=== PATIENT | male | born 1940 | race Caucasian/White ===

== ENCOUNTER 2024-05-14 17:47 | Inpatient (IN) | payer MEDICARE, BC ==
[2024-05-14 18:16] LABS: Anisocytosis Slight; Basophils % (A) 0 %; Eosinophils % (A) 0 %; Hypochromasia Slight; Lymphocytes # (A) 1.1 k/uL (1.0-4.8); Lymphocytes % (A) 18 %; MCH 31.7 pg (25.0-35.0); MCHC 32.9 g/dL (31.0-37.0); MCV 96.4 fL (80.0-100.0); Macrocytosis Slight; Mean Platelet Volume 9.2; Monocytes # (A) 0.4 k/uL (0-1.0); Monocytes % (A) 6 %; Neutrophils # (A) 4.7 k/uL (1.3-7.7); Neutrophils % (A) 74 %; Platelet Count 137 k/uL (150-450); RBC 2.06 m/uL (4.30-5.90); RDW 16.9 % (11.5-15.5); WBC 6.3 k/uL (3.8-10.6)
[2024-05-14 18:37] LABS: HCT 19.8 % (39.0-53.0); HGB 6.5 gm/dL (13.0-17.5)
--- NOTE | 2024-05-14 20:08 | ED ---
General Adult HPI - General Chief complaint: GI Bleed Stated complaint: Low Hemoglobin Time Seen by Provider: 05/14/24 17:47 Source: patient, EMS, RN notes reviewed, old records reviewed Mode of arrival: EMS - History of Present Illness Initial comments: This is an 83-year-old male with past medical history significant for renal failure. Patient had dialysis this morning and his hemoglobin was taken it was 6.2. They try to give him a unit of blood at [place] but he had antibodies so they were unable to do that. Patient states his stools been black patient denies abdominal pain patient has chest pain patient has difficulty breathing shortness of breath. [facility] sending to us in the doctor from [place] ER called us prior to the patient's arrival here. Currently the patient denies any pain. - Related Data Allergies Allergy/AdvReac Type Severity Reaction Status Date / Time cefazolin [From Kefzol] Allergy Rash/Hives Verified 05/14/24 18:03 hydralazine Allergy Rash/Hives Verified 05/14/24 18:03 Review of Systems ROS Statement: Those systems with pertinent positive or pertinent negative responses have been documented in the HPI. ROS Other: All systems not noted in ROS Statement are negative. Past Medical History Past Medical History: Cancer, Dialysis, Renal Disease Additional Past Medical History / Comment(s): Bladder cancer, kidney stones History of Any Multi-Drug Resistant Organisms: None Reported Additional Past Surgical History / Comment(s): Hip surgery, hernia repair, bladder removal/neobladder, left arm fistula, excision of uvula Past Psychological History: No Psychological Hx Reported Smoking Status: Current some day smoker Past Alcohol Use History: None Reported Past Drug Use History: None Reported General Exam - General Exam Comments Initial Comments: GENERAL: Patient is well-developed and well-nourished. Patient is nontoxic and well- hydrated and is in no acute distress. ENT: Neck is soft and supple. No significant lymphadenopathy is noted. Oropharynx is clear. Moist mucous membranes. Neck has full range of motion without eliciting any pain. EYES: The sclera were anicteric and conjunctiva are pale. Extraocular movements were intact and pupils were equal round and reactive to light. Eyelids were unrema rkable. PULMONARY: Unlabored respirations. Good breath sounds bilaterally. No audible rales rhonc hi or wheezing was noted. CARDIOVASCULAR: There is a regular rate and rhythm without any murmurs gallops or rubs. ABDOMEN: Soft and nontender with normal bowel sounds. SKIN: Skin is clear with no lesions or rashes and otherwise unremarkable. NEUROLOGIC: Patient is alert and oriented x3. Cranial nerves II through XII are grossly intact. Motor and sensory are also intact. Normal speech, volume and content. Symmetrical smile. MUSCULOSKELETAL: Normal extremities with adequate strength and full range of motion. LYMPHATICS: No significant lymphadenopathy is noted PSYCHIATRIC: Normal psychiatric evaluation. Course Vital Signs 05/14/24 05/14/24 05/14/24 17:51 19:15 19:29 Temperature 97.9 F 98.0 F 97.8 F Pulse Rate 64 51 L 67 Respiratory 18 16 18 Rate Blood Pressure 112/53 110/64 129/98 O2 Sat by Pulse 94 L 98 97 Oximetry Procedures - [facility] Protocol (Time Out) Nurse: Denita De León Medical Decision Making - Medical Decision Making Was pt. sent in by a medical professional or institution (, PA, DUPLICATE MAKER, urgent care, hospital, or fpc...) When possible be specific @ -Sent to us by [facility] Did you speak to anyone other than the patient for history (EMS, parent, family, police, friend...)? What history was obtained from this source @ -The ER physician at [facility] spoke with us prior to the patient arriving Did you review nursing and triage notes (agree or disagree)? Why? @ -I reviewed and agree with nursing and triage notes Were old charts reviewed (outside hosp., previous admission, EMS record, old EKG, old radiological studies, urgent care reports/EKG's, fpc records)? Report findings @ -No old charts were reviewed Differential Diagnosis? @ -Differential GI Bleed: Esophageal varices, aortoenteric fistula, Mery-Benz, gastritis, peptic ulcer disease, diverticulosis, inflammatory bowel disease, hemorrhoids, fissure, colitis, malignancy, Meckel's diverticulum, this is not meant to be an all- inclusive list. EKG interpreted by me (3pts min.). @ -As above X-rays interpreted by me (1pt min.). @ -None done CT interpreted by me (1pt min.). @ -None done U/S interpreted by me (1pt. min.). @ -None done What testing was considered but not performed or refused? (CT, X-rays, U/S, labs)? Why? @ -None What meds were considered but not given or refused? Why? @ -None Did you discuss the management of the patient with other professionals (professionals i.e. , PA, DUPLICATE MAKER, lab, RT, psych nurse, social media developer, clin asst, teacher, botanical technical officer, caser shoe parts)? Give summary @ -I spoke with [facility] agreed to admit the patient I admitted the patient I wrote admitting orders. Her Was smoking cessation discussed for >3mins.? @ -No Was critical care preformed (if so, how long)? @ -No Were there social determinants of health that impacted care today? How? (Homelessness, low income, unemployed, alcoholism, drug addiction, transportation, low edu. Level, literacy, decrease access to med. care, skilled nursing, rehab)? @ -No Was there de-escalation of care discussed even if they declined (Discuss DNR or withdrawal of care, Hospice)? DNR status @ -No What co-morbidities impacted this encounter? (DM, HTN, Smoking, COPD, CAD, Cancer, CVA, ARF, Chemo, Hep., AIDS, mental health diagnosis, sleep apnea, morbi d obesity)? @ -None Was patient admitted / discharged? Hospital course, mention meds given and route , prescriptions, significant lab abnormalities, going to OR and other pertinent info. @ -I repeated the hemoglobin here hemoglobin was 6.5 I ordered 1 unit of packed red blood cells and I will be admitting the patient to [facility] with a consult to Dr. Jolly Undiagnosed new problem with uncertain prognosis? @ -No Drug Therapy requiring intensive monitoring for toxicity (Heparin, Nitro, Insulin, Cardizem)? @ -No Were any procedures done? @ -No Diagnosis/symptom? @ -GI bleed Acute, or Chronic, or Acute on Chronic? @ -Acute Uncomplicated (without systemic symptoms) or Complicated (systemic symptoms)? @ -Complicated Side effects of treatment? @ -No Exacerbation, Progression, or Severe Exacerbation? @ -No Poses a threat to life or bodily function? How? (Chest pain, [place], ND, pneumonia, PE, COPD, DKA, ARF, appy, cholecystitis, CVA, Diverticulitis, Homicidal, Suicidal, threat to staff... and all critical care pts) @ -No Diagnosis/symptom? @ -Anemia Acute, or Chronic, or Acute on Chronic? @ -Acute Uncomplicated (without systemic symptoms) or Complicated (systemic symptoms)? @ -Complicate Side effects of treatment? @ -None Exacerbation, Progression, or Severe Exacerbation] @ -No Poses a threat to life or bodily function? @ -No - Lab Data Result diagrams: 05/14/24 18:08 Lab Results 05/14/24 05/14/24 05/14/24 Range/Units 18:05 18:08 18:13 WBC 6.3 (3.8-10.6) k/uL RBC 2.06 L (4.30-5.90) m/uL Hgb 6.5 L* (13.0-17.5) gm/dL Hct 19.8 L* (39.0-53.0) % MCV 96.4 (80.0-100.0) fL MCH 31.7 (25.0-35.0) pg MCHC 32.9 (31.0-37.0) g/dL RDW 16.9 H (11.5-15.5) % Plt Count 137 L (150-450) k/uL MPV 9.2 Neutrophils % 74 % Lymphocytes % 18 % Monocytes % 6 % Eosinophils % 0 % Basophils % 0 % Neutrophils # 4.7 (1.3-7.7) k/uL Lymphocytes # 1.1 (1.0-4.8) k/uL Monocytes # 0.4 (0-1.0) k/uL Eosinophils # 0.0 (0-0.7) k/uL Basophils # 0.0 (0-0.2) k/uL Hypochromasia Slight Anisocytosis Slight Macrocytosis Slight Blood Type A Negative Blood Type Confirm A Negative Blood Type Recheck No Previous Record Bld Type Recheck Status CABO Indicated Antibody Screen NEGATIVE Crossmatch See Detail Spec Expiration Date 05/17/20242304 Disposition Clinical Impression: Anemia, GI bleed Disposition: ADMITTED IP TO THIS [facility] Referrals: Santi Partida MD [Primary Care Provider] - 1-2 days Time of Disposition: 20:18
[2024-05-14] MEDS: SODIUM CHLORIDE 0.9% 1,000 ML IV ONE (21:30)
[2024-05-14 22:15] LABS: Anisocytosis Slight; Basophils % (A) 0 %; Eosinophils % (A) 0 %; HCT 20.3 % (39.0-53.0); Hypochromasia Slight; Lymphocytes # (A) 1.3 k/uL (1.0-4.8); Lymphocytes % (A) 22 %; MCH 30.9 pg (25.0-35.0); MCHC 32.6 g/dL (31.0-37.0); MCV 94.7 fL (80.0-100.0); Macrocytosis Slight; Mean Platelet Volume 9.1; Monocytes # (A) 0.4 k/uL (0-1.0); Monocytes % (A) 6 %; Neutrophils # (A) 4.2 k/uL (1.3-7.7); Neutrophils % (A) 70 %; Platelet Count 114 k/uL (150-450); RBC 2.14 m/uL (4.30-5.90); RDW 17.4 % (11.5-15.5)
[2024-05-14 22:49] LABS: HGB 6.6 gm/dL (13.0-17.5)
[2024-05-15 04:41] LABS: Anisocytosis Slight; Basophils % (A) 0 %; Eosinophils # (A) 0.1 k/uL (0-0.7); Eosinophils % (A) 2 %; HCT 21.8 % (39.0-53.0); HGB 7.1 gm/dL (13.0-17.5); Hypochromasia Moderate; Lymphocytes # (A) 1.7 k/uL (1.0-4.8); Lymphocytes % (A) 30 %; MCH 31.2 pg (25.0-35.0); MCHC 32.5 g/dL (31.0-37.0); MCV 96.1 fL (80.0-100.0); Macrocytosis Slight; Mean Platelet Volume 9.2; Monocytes # (A) 0.3 k/uL (0-1.0); Monocytes % (A) 6 %; Neutrophils # (A) 3.5 k/uL (1.3-7.7); Neutrophils % (A) 61 %; Platelet Count 129 k/uL (150-450); RBC 2.26 m/uL (4.30-5.90); RDW 17.6 % (11.5-15.5); WBC 5.8 k/uL (3.8-10.6)
[2024-05-15] MEDS: PANTOPRAZOLE 40 MG/10 ML VIAL IVP SCH (08:16)
[2024-05-15 09:00] LABS: ALT 36 U/L (4-49); AST 31 U/L (17-59); African American GFR (CKD) 17 (>60 ml/min/1.73 sqM); Albumin/Globulin Ratio 1.3; Alkaline Phosphatase 41 U/L (38-126); Anion Gap 10 mmol/L; Blood Urea Nitrogen 85 mg/dL (9-20); Calcium 8.7 mg/dL (8.4-10.2); Carbon Dioxide 27 mmol/L (22-30); Chloride 100 mmol/L (98-107); Globulin 2.4 g/dL; Glucose 86 mg/dL (74-99); Non-African American GFR(CKD) 14 (>60 ml/min/1.73 sqM); Potassium 5.4 mmol/L (3.5-5.1); Sodium 137 mmol/L (137-145); Total Bilirubin 0.8 mg/dL (0.2-1.3); Total Protein 5.4 g/dL (6.3-8.2)
[2024-05-15] MEDS: CALCIUM ACETATE 667 MG TAB PO SCH (12:31)
--- NOTE | 2024-05-15 12:40 | P.CONS ---
History of Present Illness - Reason for Consult Consult date: 05/15/24 GI bleed Requesting physician: Scott Nunn - Chief Complaint Black stool - History of Present Illness This a pleasant 83-year-old male with a history of end-stage renal disease on hemodialysis and bladder cancer who went to have hemodialysis and had blood taken and was found to be anemic with a hemoglobin in the sixes. To go to the emergency department for blood transfusion. While he was here he had mentioned that he had started having black stool on Tuesday and again had a small bowel movement today with black stool. Hemoglobin was 6.5 on admission he received 1 unit of blood with repeat hemoglobin is 7.1. He has history of carotid disease and is currently on Plavix last taken yesterday. States his last colonoscopy was 5 to 6 years ago and [place], report not available at this time. He gets dialysis Fridays. He is denying any abdominal pain, nausea or vomiting. No history of GERD no regular NSAID use. Review of Systems REVIEW OF SYSTEMS: CARDIOPULMONARY: No chest pain or shortness of breath. Gastrointestinal: No abdominal pain. No nausea or vomiting. No hematemesis, coffee-ground emesis. No rectal bleeding, patient reports 2 episodes of black stool. GENITOURINARY: No dysuria or hematuria. MUSCULOSKELETAL: Reports normal range of motion., Joint pain. SKIN: No rashes. No jaundice. ENDOCRINE: No chills, fevers. No excessive weight gain or loss. No polydipsia or polyuria. PSYCHIATRIC: Unremarkable. NEUROLOGY: No change in mental status. Denies dizziness, headache. ENT: Vision unremarkable. CONSTITUTIONAL: No recent weight loss. No fever, chills, night sweats. Past Medical History Past Medical History: Cancer, Dialysis, Renal Disease Additional Past Medical History / Comment(s): Bladder cancer, kidney stones History of Any Multi-Drug Resistant Organisms: None Reported Additional Past Surgical History / Comment(s): Hip surgery, hernia repair, bladder removal/neobladder, left arm fistula, excision of uvula Smoking Status: Current every day smoker Medications and Allergies Home Medications Medication Instructions Recorded Confirmed Type Acetaminophen Tab [Tylenol Tab] 500 mg PO HS 05/14/24 05/14/24 History Ascorbic Acid [Vitamin C] 1,000 mg PO DAILY 05/14/24 05/14/24 History Atorvastatin [Lipitor] 40 mg PO HS 05/14/24 05/14/24 History Calcium Acetate [Phoslo] 1,334 mg PO BID PRN 05/14/24 05/14/24 History Calcium Acetate [Phoslo] 2,001 mg PO TID-W/MEALS 05/14/24 05/14/24 History Cholecalciferol (Vitamin D3) 50 mcg PO DAILY 05/14/24 05/14/24 History [Vitamin D3 (50 Mcg = 2000 Iu)] Ciprofloxacin HCl [Cipro] 250 mg PO Q12HR 05/14/24 05/14/24 History Clopidogrel [Plavix] 75 mg PO DAILY 05/14/24 05/14/24 History Doxazosin [Cardura] 4 mg PO DAILY 05/14/24 05/14/24 History Furosemide [Lasix] 40 mg PO BID 05/14/24 05/14/24 History Losartan Potassium 50 mg PO DAILY 05/14/24 05/14/24 History [place]-3/Dha/Epa/Fish Oil [Fish Oil 1 cap PO DAILY 05/14/24 05/14/24 History 1,000 mg Softgel] atenoloL [Tenormin] 50 mg PO DAILY 05/14/24 05/14/24 History cloNIDine HCL [Catapres] 0.3 mg PO BID 05/14/24 05/14/24 History predniSONE [Deltasone] 20 mg PO BID 05/14/24 05/14/24 History Allergies Allergy/AdvReac Type Severity Reaction Status Date / Time cefazolin [From Kefzol] Allergy Rash/Hives Verified 05/14/24 20:25 hydralazine Allergy Rash/Hives Verified 05/14/24 20:25 Physical Exam Vitals: Vital Signs Temp Pulse Pulse Resp BP BP Pulse Ox 05/15/24 09:15 97.8 F 56 L 18 145/55 98 05/15/24 08:54 97.8 F 05/15/24 08:11 54 L 18 147/66 96 05/15/24 07:03 51 L 16 133/50 95 05/15/24 05:47 60 13 122/64 99 05/15/24 04:20 65 14 152/99 97 05/15/24 01:00 60 18 128/62 97 05/15/24 00:00 60 20 149/62 97 05/14/24 23:00 51 L 17 164/62 96 05/14/24 22:28 58 L 24 129/63 97 05/14/24 21:36 65 18 138/53 100 05/14/24 20:44 97.8 F 70 18 131/59 99 05/14/24 19:49 97.9 F 69 18 120/74 100 05/14/24 19:29 97.8 F 67 18 129/98 97 05/14/24 19:15 98.0 F 51 L 16 110/64 98 05/14/24 17:51 97.9 F 64 18 112/53 94 L Intake and Output 05/14/24 05/15/24 05/15/24 22:59 06:59 14:59 Intake Total 310 Balance 310 Intake: Blood Product 310 Rc Irr As1 Unit 310 [id number] Other: Weight 78.471 kg 78.471 kg General appearance: The patient is alert, oriented, appears in no acute distress. HET: Head is normocephalic and atraumatic. Conjunctiva pink. Sclera anicteric. Neck: Supple without lymphadenopathy. Trachea midline. Heart: Regular. Lungs: Equal expansion, normal respiratory effort. Abdomen: Soft, nontender, nondistended. Skin: No rashes. No jaundice. Extremities: Normal skin color and turgor. No pedal edema. Neurological: No focal deficits. Alert and oriented x3. Results CBC & Chem 7: 05/15/24 04:28 05/15/24 07:47 Labs: Abnormal Lab Results - Last 24 Hours (Table) 05/14/24 05/14/24 05/14/24 Range/Units 18:05 18:08 21:36 RBC 2.06 L 2.14 L (4.30-5.90) m/uL Hgb 6.5 L* 6.6 L* (13.0-17.5) gm/dL Hct 19.8 L* 20.3 L (39.0-53.0) % RDW 16.9 H 17.4 H (11.5-15.5) % Plt Count 137 L 114 L (150-450) k/uL Potassium (3.5-5.1) mmol/L BUN (9-20) mg/dL Creatinine (0.66-1.25) mg/dL Total Protein (6.3-8.2) g/dL Albumin (3.5-5.0) g/dL Crossmatch See Detail 05/15/24 05/15/24 Range/Units 04:28 07:47 RBC 2.26 L (4.30-5.90) m/uL Hgb 7.1 L (13.0-17.5) gm/dL Hct 21.8 L (39.0-53.0) % RDW 17.6 H (11.5-15.5) % Plt Count 129 L (150-450) k/uL Potassium 5.4 H (3.5-5.1) mmol/L BUN 85 H (9-20) mg/dL Creatinine 3.68 H (0.66-1.25) mg/dL Total Protein 5.4 L (6.3-8.2) g/dL Albumin 3.0 L (3.5-5.0) g/dL Crossmatch Assessment and Plan (1) Anemia Narrative/Plan: 83-year-old male with end-stage renal disease on hemodialysis Tuesday went for dialysis yesterday and was noted to have low hemoglobin they were going to transfuse him however secondary to his antibodies they did not have blood. He was presenting with black stool is on Plavix for carotid disease. Need to consider possible upper GI bleed. Will proceed with upper endoscopy. Hold Plavix. Avoid NSAIDs. Recommend Protonix 40 mg daily Current Visit: Yes Status: Acute Code(s): D64.9 - ANEMIA, UNSPECIFIED SNOMED Code(s): 973350446 (2) Melena Current Visit: Yes Status: Acute Code(s): K92.1 - MELENA SNOMED Code(s): 5505982 (3) End-stage renal disease on hemodialysis Current Visit: Yes Status: Acute Code(s): N18.6 - END STAGE RENAL DISEASE; Z99.2 - DEPENDENCE ON RENAL DIALYSIS SNOMED Code(s): 182477660 Plan: 1. Continue symptomatic and supportive care 2. Hold Plavix 3. Avoid NSAIDs 4. Protonix 40 mg daily for GI prophylaxis 5. Patient may have regular diet, n.p.o. after midnight 6. Plan for upper endoscopy tomorrow Thank you for this consultation, we will continue to follow. Dr. K Tumma I agree with the dictator's note, documented as a scribe by Eileen Beltran.
[2024-05-15 15:26] LABS: % Iron Saturation 85.36 (15.00-50.00); Iron 204 UG/DL (65-175); Total Iron Binding Capacity 239 UG/DL (228-460)
[2024-05-15] MEDS: ATORVASTATIN 40 MG TAB PO SCH (21:24)
[2024-05-15] MEDS: ACETAMINOPHEN TAB 500 MG TAB PO SCH (21:24)
--- NOTE | 2024-05-16 00:02 | P.HPIM ---
History of Present Illness H&P Date: 05/15/24 Chief Complaint: Low hemoglobin Patient is a 83-year-old male with a past medical history of ESRD on hemodialysis Tuesday and Tuesday, history of bladder cancer status postsurgery and neobladder, renal stones, currently some day smoker presents to ER with low hemoglobin level. Patient had dialysis on Tuesday morning and CBC showed hemoglobin of 6.2. Will try to give him 1 unit of blood tacrolimus for about had antibodies so they were unable to do that. Patient states also stated that he did have dark-colored stool on Tuesday and also while in the hospital. Was also complaining of generalized weakness and shortness of breath. Denied any complaints of abdominal pain. No nausea or vomiting. Patient has been having significant cough from recent COVID-19 infection. He was started on prednisone 20 mg twice daily since yesterday. He was also on antibiotics in the form of ciprofloxacin. Denied any fever or chills. Laboratory data showed WBC 6.3 hemoglobin 6.5 and platelets 137 sodium 137 potassium 5.4 chloride 100 bicarb is 27 BUN 85 creatinine 3.68 Review of Systems Constitutional: Patient denies any fever or chills . Generalized weakness and fatigue. Abdomen: Patient denied nausea vomiting and diarrhea and abdominal pain. Dark- colored stools. Cardiovascular: Patient denies any chest pain or short of breath no palp itations. Respiratory: patient denied any cough or sputum production. No shortness of breath Neurologic: Patient denied any numbness or tingling. no headache. Musculoskeletal: Patient denies any complaints of joint swelling or deformity. Skin: Negative Psychiatric: Negative Endocrine: No heat or cold intolerance. No recent weight gain. Genitourinary: No dysuria or hematuria. All other 14 point ROS negative except the above Past Medical History Past Medical History: Cancer, Dialysis, Renal Disease Additional Past Medical History / Comment(s): Bladder cancer, kidney stones History of Any Multi-Drug Resistant Organisms: None Reported Additional Past Surgical History / Comment(s): Hip surgery, hernia repair, bladder removal/neobladder, left arm fistula, excision of uvula Smoking Status: Current every day smoker Medications and Allergies Home Medications Medication Instructions Recorded Confirmed Type Acetaminophen Tab [Tylenol Tab] 500 mg PO HS 05/14/24 05/14/24 History Ascorbic Acid [Vitamin C] 1,000 mg PO DAILY 05/14/24 05/14/24 History Atorvastatin [Lipitor] 40 mg PO HS 05/14/24 05/14/24 History Calcium Acetate [Phoslo] 1,334 mg PO BID PRN 05/14/24 05/14/24 History Calcium Acetate [Phoslo] 2,001 mg PO TID-W/MEALS 05/14/24 05/14/24 History Cholecalciferol (Vitamin D3) 50 mcg PO DAILY 05/14/24 05/14/24 History [Vitamin D3 (50 Mcg = 2000 Iu)] Ciprofloxacin HCl [Cipro] 250 mg PO Q12HR 05/14/24 05/14/24 History Clopidogrel [Plavix] 75 mg PO DAILY 05/14/24 05/14/24 History Doxazosin [Cardura] 4 mg PO DAILY 05/14/24 05/14/24 History Furosemide [Lasix] 40 mg PO BID 05/14/24 05/14/24 History Losartan Potassium 50 mg PO DAILY 05/14/24 05/14/24 History [place]-3/Dha/Epa/Fish Oil [Fish Oil 1 cap PO DAILY 05/14/24 05/14/24 History 1,000 mg Softgel] atenoloL [Tenormin] 50 mg PO DAILY 05/14/24 05/14/24 History cloNIDine HCL [Catapres] 0.3 mg PO BID 05/14/24 05/14/24 History predniSONE [Deltasone] 20 mg PO BID 05/14/24 05/14/24 History Allergies Allergy/AdvReac Type Severity Reaction Status Date / Time cefazolin [From Kefzol] Allergy Rash/Hives Verified 05/14/24 20:25 hydralazine Allergy Rash/Hives Verified 05/14/24 20:25 Physical Exam Vitals: Vital Signs Temp Pulse Pulse Resp BP BP Pulse Ox 05/15/24 09:15 97.8 F 56 L 18 145/55 98 05/15/24 08:54 97.8 F 05/15/24 08:11 54 L 18 147/66 96 05/15/24 07:03 51 L 16 133/50 95 05/15/24 05:47 60 13 122/64 99 05/15/24 04:20 65 14 152/99 97 05/15/24 01:00 60 18 128/62 97 05/15/24 00:00 60 20 149/62 97 05/14/24 23:00 51 L 17 164/62 96 05/14/24 22:28 58 L 24 129/63 97 05/14/24 21:36 65 18 138/53 100 05/14/24 20:44 97.8 F 70 18 131/59 99 05/14/24 19:49 97.9 F 69 18 120/74 100 05/14/24 19:29 97.8 F 67 18 129/98 97 05/14/24 19:15 98.0 F 51 L 16 110/64 98 05/14/24 17:51 97.9 F 64 18 112/53 94 L Intake and Output 05/14/24 05/15/24 05/15/24 22:59 06:59 14:59 Intake Total 310 Balance 310 Intake: Blood Product 310 Rc Irr As1 Unit 310 [id number] Other: Weight 78.471 kg 78.471 kg PHYSICAL EXAMINATION: Patient is lying in the bed comfortably, no acute distress, awake alert and oriented.. HEENT: Normocephalic. Neck is supple. Pupils reactive. Nostrils clear. Oral cavity is moist. Neck reveals no JVD, carotid bruits, or thyromegaly. CHEST EXAMINATION: Trachea is central. Symmetrical expansion. Lung chase clear to auscultation and percussion. CARDIAC: Normal S1, S2 with no gallops. No murmurs ABDOMEN: Soft. Bowel sounds normal. No organomegaly. No abdominal bruits. Extremities: reveal no edema. No clubbing or cyanosis Neurologically awake, alert, oriented x3 with well-coordinated movements. No focal deficits noted Skin: No rash or skin lesions. Psychiatric: Coperative. Nonsuicidal Musculoskeletal: No joint swelling or deformity. Normal range of motion. Results CBC & Chem 7: 05/15/24 04:28 05/15/24 07:47 Labs: Abnormal Lab Results - Last 24 Hours (Table) 05/14/24 05/14/24 05/14/24 Range/Units 18:05 18:08 21:36 RBC 2.06 L 2.14 L (4.30-5.90) m/uL Hgb 6.5 L* 6.6 L* (13.0-17.5) gm/dL Hct 19.8 L* 20.3 L (39.0-53.0) % RDW 16.9 H 17.4 H (11.5-15.5) % Plt Count 137 L 114 L (150-450) k/uL Potassium (3.5-5.1) mmol/L BUN (9-20) mg/dL Creatinine (0.66-1.25) mg/dL Total Protein (6.3-8.2) g/dL Albumin (3.5-5.0) g/dL Crossmatch See Detail 05/15/24 05/15/24 Range/Units 04:28 07:47 RBC 2.26 L (4.30-5.90) m/uL Hgb 7.1 L (13.0-17.5) gm/dL Hct 21.8 L (39.0-53.0) % RDW 17.6 H (11.5-15.5) % Plt Count 129 L (150-450) k/uL Potassium 5.4 H (3.5-5.1) mmol/L BUN 85 H (9-20) mg/dL Creatinine 3.68 H (0.66-1.25) mg/dL Total Protein 5.4 L (6.3-8.2) g/dL Albumin 3.0 L (3.5-5.0) g/dL Crossmatch Thrombosis Risk Factor Assmnt - DVT/VTE Prophylaxis DVT/VTE Prophylaxis: Mechanical Prophylaxis ordered Assessment and Plan Assessment: Symptomatic anemia Acute blood loss anemia likely due to upper GI bleed. Recent COVID-19 infection ESRD on hemodialysis Tuesday and Tuesday History of bladder cancer status post surgery DVT prophylaxis with SCDs GI prophylaxis patient is already on PPI IV Plan: Patient will be continued on Protonix IV 40 mg twice daily and continue to monitor H&H. Patient was given 1 unit of PRBC while in the ER and hemoglobin went up to 7.1 today. GI is on board. Plavix is on hold and n.p.o. after midnight. GI is planning for EGD tomorrow. Nephrology will be consulted. Follow-up closely. Time with Patient: Greater than 30
[2024-05-16 08:32] LABS: Basophils # (A) 0.02 X 10*3/uL (0.00-0.10); Basophils % (A) 0.3 %; Eosinophils # (A) 0.06 X 10*3/uL (0.04-0.35); Eosinophils % (A) 0.8 %; HCT 22.3 % (39.6-50.0); HGB 7.1 g/dL (13.0-17.0); Lymphocytes # (A) 2.62 X 10*3/uL (0.90-5.00); Lymphocytes % (A) 33.7 %; MCH 31.6 pg (27.0-32.0); MCHC 31.8 g/dL (32.0-37.0); MCV 99.1 FL (80.0-97.0); Mean Platelet Volume 12.6 FL (9.5-12.2); Monocytes # (A) 0.76 X 10*3/uL (0.20-1.00); Monocytes % (A) 9.8 %; NRBC Per 100 WBC 0 X 10*3/uL (0.00-0.01); Neutrophils # (A) 4.28 X 10*3/uL (1.80-7.70); Neutrophils % (A) 54.9 %; Platelet Count 128 X 10*3/uL (140-440); RBC 2.25 X 10*6/uL (4.40-5.60); RDW 18.2 % (11.5-14.5); WBC 7.78 X 10*3/uL (4.50-10.00)
[2024-05-16 08:39] LABS: BUN/Creat Ratio 17.51 Ratio (12.00-20.00); Blood Urea Nitrogen 89.3 mg/dL (9.0-27.0); Calcium 8.8 mg/dL (8.7-10.3); Carbon Dioxide 24.4 mmol/L (21.6-31.8); Chloride 101 mmol/L (96-109); Glucose 95 mg/dL (70-110); Phosphorus 4.3 mg/dL (2.4-5.1); Potassium 5.6 mmol/L (3.5-5.5); Sodium 138 mmol/L (135-145)
[2024-05-16] MEDS: DOXAZOSIN 4 MG TAB PO SCH (11:01)
[2024-05-16] MEDS: LOSARTAN 50 MG TAB PO SCH (11:01)
--- NOTE | 2024-05-16 11:17 | P.NPCON ---
History of Present Illness - Reason for Consult end stage renal disease - History of Present Illness Reason for consultation: End-stage renal disease History of present illness: Patient is a 83-year-old male seen in renal consultation for end-stage renal disease. He is maintained on hemodialysis on Tuesday schedule via AV fistula. Patient states he has been having black stools for about 1 to 2 days now. He had blood work done outpatient and hemoglobin was noted to be low at 6.2 and was advised to come to the hospital. He did receive blood transfusion and is scheduled for endoscopy later this afternoon. Denies chest pain or shortness of breath. Patient has history of bladder cancer with neobladder and performs straight catheterizations twice daily. He denies history of diabetes or coronary artery disease. No vomiting or diarrhea. Oral intake has been fair. Last dialysis was Tuesday. Hemodynamically stable. Afebrile. Vital signs are stable. General: No acute distress. HEENT: Head exam is unremarkable. LUNGS: No audible rhonchi or wheezes. HEART: Rate and Rhythm are regular. ABDOMEN: Nontender. EXTREMITITES: No edema. Past Medical History Past Medical History: Cancer, Dialysis, Renal Disease Additional Past Medical History / Comment(s): Bladder cancer, kidney stones History of Any Multi-Drug Resistant Organisms: None Reported Additional Past Surgical History / Comment(s): Hip surgery, hernia repair, bladder removal/neobladder, left arm fistula, excision of uvula Smoking Status: Current every day smoker Medications and Allergies Home Medications Medication Instructions Recorded Confirmed Type Acetaminophen Tab [Tylenol Tab] 500 mg PO HS 05/14/24 05/14/24 History Ascorbic Acid [Vitamin C] 1,000 mg PO DAILY 05/14/24 05/14/24 History Atorvastatin [Lipitor] 40 mg PO HS 05/14/24 05/14/24 History Calcium Acetate [Phoslo] 1,334 mg PO BID PRN 05/14/24 05/14/24 History Calcium Acetate [Phoslo] 2,001 mg PO TID-W/MEALS 05/14/24 05/14/24 History Cholecalciferol (Vitamin D3) 50 mcg PO DAILY 05/14/24 05/14/24 History [Vitamin D3 (50 Mcg = 2000 Iu)] Ciprofloxacin HCl [Cipro] 250 mg PO Q12HR 05/14/24 05/14/24 History Clopidogrel [Plavix] 75 mg PO DAILY 05/14/24 05/14/24 History Doxazosin [Cardura] 4 mg PO DAILY 05/14/24 05/14/24 History Furosemide [Lasix] 40 mg PO BID 05/14/24 05/14/24 History Losartan Potassium 50 mg PO DAILY 05/14/24 05/14/24 History [place]port-3/Dha/Epa/Fish Oil [Fish Oil 1 cap PO DAILY 05/14/24 05/14/24 History 1,000 mg Softgel] atenoloL [Tenormin] 50 mg PO DAILY 05/14/24 05/14/24 History cloNIDine HCL [Catapres] 0.3 mg PO BID 05/14/24 05/14/24 History predniSONE [Deltasone] 20 mg PO BID 05/14/24 05/14/24 History Allergies Allergy/AdvReac Type Severity Reaction Status Date / Time cefazolin [From Kefzol] Allergy Rash/Hives Verified 05/14/24 20:25 hydralazine Allergy Rash/Hives Verified 05/14/24 20:25 Physical Exam Vitals: Vital Signs Temp Pulse Resp BP Pulse Ox 05/16/24 09:05 97.6 F 59 L 18 132/54 90 L 05/16/24 01:33 98.6 F 59 L 16 138/59 97 05/15/24 19:31 98.5 F 54 L 16 148/65 97 05/15/24 18:28 98.4 F 55 L 16 132/52 95 05/15/24 13:45 97.5 F L 58 L 14 153/66 96 05/15/24 13:14 97.5 F L 52 L 16 160/68 92 L Intake and Output 05/15/24 05/16/24 05/16/24 22:59 06:59 14:59 Intake Total 1800 Balance 1800 Intake: Oral 1800 Other: Voiding Method Toilet Self-Catheterization # Voids 3 3 Results - Lab Results Most recent lab results Calcium 8.8 mg/dL (8.7-10.3) 05/16/24 05:15 Phosphorus 4.3 mg/dL (2.4-5.1) 05/16/24 05:15 05/16/24 05:15 05/16/24 05:15 Assessment and Plan Plan: Assessment: 1. End-stage renal disease maintained on hemodialysis on Tuesday schedule. 2. GI bleed status post blood transfusion. Scheduled for endoscopy today. 3. Chronic kidney disease mineral bone disease maintained on PhosLo. 4. Hypertension with chronic kidney disease. Stable. Plan: Hemodialysis today. IV DDAVP x 1 dose today. Add Aranesp. Thank you for the consultation. I will continue to follow the patient with you during his hospital stay.
[2024-05-16] MEDS: DESMOPRESSIN ACETATE 24 MCG in SODIUM CHLORIDE 0.9% 50 ML IVPB ONE (12:58)
[2024-05-16] MEDS ORDERED: LIDOCAINE 2% (PF) 20 MG/ML 5 ML VIAL ONE (13:06)
[2024-05-16] MEDS ORDERED: PROPOFOL 10 MG/ML 20 ML VIAL IV ONE (13:06)
[2024-05-16] MEDS: SODIUM CHLORIDE 0.9% 1,000 ML IV ONE (13:17)
--- NOTE | 2024-05-16 13:24 | P.PCN ---
Date of Procedure: 05/16/24 Procedure(s) Performed: BRIEF HISTORY: Patient is a 83-year-old, pleasant, white male with history of end-stage renal disease on hemodialysis admitted to hospital with severe symptomatic anemia and hemoglobin of 6 requiring unit of PRBC transfusion. He had an episode of black tarry stools for the last 2 days. Consider follow-up endoscopy to evaluate for. PROCEDURE PERFORMED: Esophagogastroduodenoscopy. PREOPERATIVE DIAGNOSIS: Anemia and black tarry stool. IV sedation per anesthesia. PROCEDURE: After informed consent was obtained, the patient was brought into the endoscopy unit. IV sedation was administered by Anesthesia under continuous monitoring. Initially the Olympus GIF-140 video endoscope was inserted into the mouth. Esophagus intubated without any difficulty. It was gradually advanced into the stomach and duodenum and carefully examined. The bulb and the second part of the duodenum appeared normal. The scope at this time was withdrawn to the stomach, adequately insufflated with air, and upon careful examination, mucosa of the antrum, body, cardia and the fundus appeared normal. The scope was then withdrawn into the esophagus. The GE junction was located at 39 cm from the incisors. The esophagus appeared normal. There were no erosions or ulcerations seen and the patient tolerated the procedure well. IMPRESSION: 1. Mild gastritis and duodenitis. 2. No evidence of angioectasia or peptic ulcer disease. RECOMMENDATIONS: The findings of this examination were discussed with the patient as well as his family.. Start him on a regular diet. Monitor CBC on a daily basis. Will hold off on further testing with a small bowel capsule endoscopy at this time. Discussed with patient's family with the plan.
[2024-05-16] MEDS: DARBEPOETIN ALFA 40 MCG/0.4 ML SYRINGE SQ SCH (13:44)
[2024-05-16 16:58] VITALS: BP 141/52; PULSE 55; RESP 14; TEMP 97.8
--- NOTE | 2024-05-21 09:44 | P.DS ---
Providers Date of admission: 05/14/24 20:21 Expected date of discharge: 05/16/24 Attending physician: Chan Aparicio Consults: 05/14/24 20:19 Consult Physician Urgent Consulting Provider: Shell Kim Consult Reason/Comments: GI bleed Do you want consulting provider notified?: Yes 05/15/24 23:57 Consult Physician Routine Consulting Provider: Alex Viveros Consult Reason/Comments: ESRD on HD MWF Do you want consulting provider notified?: Yes Primary care physician: Santi Partida Hospital Course: Final diagnosis Symptomatic anemia Acute blood loss anemia likely due to upper GI bleed. Status post EGD showing gastritis and duodenitis with no active bleeding and no active ulcers noted Recent COVID-19 infection ESRD on hemodialysis Tuesday and Tuesday History of bladder cancer status post surgery DVT prophylaxis with SCDs GI prophylaxis patient is already on PPI IV Discharge disposition Patient is being discharged in a stable condition with guarded prognosis to home. Patient will follow-up with Dr. Partida in the outpatient setting upon discharge. Patient is to continue with holding Plavix for 1 more day and okay to resume after 05/17/2024. Patient to follow-up with GI outpatient as well as nephrology as scheduled. Continue hemodialysis as scheduled. Total time taken is greater than 35 minutes. Hospital course This is a 83-year-old male who was recently admitted with symptomatic anemia with dark stools with concerns of upper GI bleed. Hemoglobin is stable and recommending outpatient follow-up with close monitoring of hemoglobin. Patient was evaluated by GI status post EGD showing acute gastritis and duodenitis with no active bleeding ulcers noted. Patient has been instructed to hold Plavix for 1 more day and okay to resume monitor closely in the outpatient setting of hemoglobin and if having any further issues contact primary care provider as well as GI outpatient. Patient has been cleared by consultations for discharge. Please refer to consultation notes for further HPI. Patient will continue hemodialysis with his next session on Tuesday morning. Patient is adamant about leaving reports to feeling fine and does not want to stay any further. Currently no reports of chest pain, shortness of breath, or palpitations. Patient is afebrile. No reports of nausea or vomiting and patient is tolerating diet. Patient will be discharged home today. Physical exam: Gen: This is a 83-year-old male who is awake, alert and oriented x 3, well- developed, elderly appearing HEENT: Head is atraumatic, normocephalic. Pupils equal, round. Sclerae is anicteric. NECK: Supple. No JVD. No lymphadenopathy. No thyromegaly. LUNGS: Clear to auscultation. No wheezes or rhonchi. No intercostal retractions. HEART: Regular rate and rhythm. No murmur. ABDOMEN: Soft. Thin. Bowel sounds are present. No masses. No tenderness. EXTREMITIES: No pedal edema. No calf tenderness. NEUROLOGICAL: Patient is awake, alert and oriented x3. Cranial nerves 2 through 12 are grossly intact. Please refer to medication reconciliation sheet for a list of medications. The impression and plan of care has been dictated by Ciara Greco, Nurse Practitioner as directed. Dr. Anisa MD I have performed a history and examination and MDM of this patient, discussed the same with the dictator, and agree with the dictator's assessment and plan as written ,documented as a scribe. Based on total visit time, I have performed more than 50% of the visit. Patient Condition at Discharge: Fair Plan - Discharge Summary New Discharge Prescriptions: New Pantoprazole [Protonix] 40 mg PO DAILY #30 tab Darbepoetin Jax [Aranesp] 40 mcg SQ Q7D #0 each Continue Acetaminophen Tab [Tylenol] 500 mg PO HS Ascorbic Acid [Vitamin C] 1,000 mg PO DAILY Atorvastatin [Lipitor] 40 mg PO HS Calcium Acetate [PhosLo] 1,334 mg PO BID PRN PRN Reason: snacks Calcium Acetate [PhosLo] 2,001 mg PO TID-W/MEALS cloNIDine HCL [Catapres] 0.3 mg PO BID Furosemide [Lasix] 40 mg PO BID Doxazosin [Cardura] 4 mg PO DAILY Cholecalciferol (Vitamin D3) [Vitamin D3 (50 Mcg = 2000 Iu)] 50 mcg PO DAILY Napoleon-3/Dha/Epa/Fish Oil [Fish Oil 1,000 mg Softgel] 1 cap PO DAILY Losartan Potassium 50 mg PO DAILY Discontinued atenoloL [Tenormin] 50 mg PO DAILY Ciprofloxacin HCl [Cipro] 250 mg PO Q12HR Clopidogrel [Plavix] 75 mg PO DAILY predniSONE [Deltasone] 20 mg PO BID Discharge Medication List Acetaminophen Tab [Tylenol] 500 mg PO HS 05/14/24 [History] Ascorbic Acid [Vitamin C] 1,000 mg PO DAILY 05/14/24 [History] Atorvastatin [Lipitor] 40 mg PO HS 05/14/24 [History] Calcium Acetate [PhosLo] 1,334 mg PO BID PRN 05/14/24 [History] Calcium Acetate [PhosLo] 2,001 mg PO TID-W/MEALS 05/14/24 [History] Cholecalciferol (Vitamin D3) [Vitamin D3 (50 Mcg = 2000 Iu)] 50 mcg PO DAILY 05/14/24 [History] Doxazosin [Cardura] 4 mg PO DAILY 05/14/24 [History] Furosemide [Lasix] 40 mg PO BID 05/14/24 [History] Losartan Potassium 50 mg PO DAILY 05/14/24 [History] Napoleon-3/Dha/Epa/Fish Oil [Fish Oil 1,000 mg Softgel] 1 cap PO DAILY 05/14/24 [History] cloNIDine HCL [Catapres] 0.3 mg PO BID 05/14/24 [History] Darbepoetin Jax [Aranesp] 40 mcg SQ Q7D #0 each 05/16/24 [Rx] Pantoprazole [Protonix] 40 mg PO DAILY #30 tab 05/16/24 [Rx] Follow up Appointment(s)/Referral(s): Shell Kim MD [STAFF PHYSICIAN] - 1 Week (please call the office to schedule a follow up appointment) Santi Partida MD [Primary Care Provider] - 05/22/24 11:00 am (appointment with Chinyere LAWSON [address] [place] [address] please take discharge paperwork to appointment.) Ambulatory/Diagnostic Orders: Complete Blood Count w/diff [LAB.AMB] Time Frame: 2 Days, Location: None Selected Patient Instructions/Handouts: Pantoprazole (By mouth), Gastritis (DC) Activity/Diet/Wound Care/Special Instructions: Activity limited until follow-up Follow-up with primary care provider on discharge Continue with dialysis as scheduled Tuesday/Tuesday/Tuesday Discussed with nephrology regarding Aranesp as it requires prior authorization Follow-up with GI outpatient Continue holding Plavix for the next 2 days and then may resume on Tuesday Monitor for any further bleeding Repeat labs in 1 to 2 days to monitor hemoglobin Discharge Disposition: HOME SELF-CARE
== END 2024-05-16 17:55 | disposition home or self-care (01) | DRG 377 ==
LOC: EC 17:47 → 4SSUR 20:21 → 5NMEDONC 05-15 07:22 → OBSVTOIN 05-16 13:14
PROVIDERS: ADMIT Hospitalist; ATTEND Hospitalist
PROC: 30233N1 Transfusion of Nonautologous Red Blood Cells into Peripheral Vein, Percutaneous Approach (ICD-10-PCS; 2024-05-14)
PROC: 0DJ08ZZ Inspection of Upper Intestinal Tract, Via Natural or Artificial Opening Endoscopic (ICD-10-PCS; principal; 2024-05-16 12:20)
DX: K29.81 Duodenitis with bleeding (principal); N18.6 End stage renal disease; I12.0 Hypertensive chronic kidney disease with stage 5 chronic kidney disease or end stage renal disease; D62 Acute posthemorrhagic anemia; Z99.2 Dependence on renal dialysis; K29.01 Acute gastritis with bleeding; K92.1 Melena; F17.210 Nicotine dependence, cigarettes, uncomplicated; Z96.0 Presence of urogenital implants; M89.8X9 Other specified disorders of bone, unspecified site; Z79.02 Long term (current) use of antithrombotics/antiplatelets; Z79.899 Other long term (current) drug therapy; Z86.16 Personal history of COVID-19; Z85.51 Personal history of malignant neoplasm of bladder
CPT/HCPCS: 36415; 36430; 43235; 80048; 80053; 82728; 83540; 83550; 84100; 85025; 86850; 86900; 86901; 86920; 90935; 96361; 96375; 99285

== ENCOUNTER 2024-06-27 02:32 | Inpatient (IN) | payer MEDICARE, BC ==
[2024-06-27] MEDS ORDERED: PNEUMONIA PROTOCOL UTILIZED 1 EACH MISC PO PRN (02:43)
--- NOTE | 2024-06-27 02:57 | ED ---
General Adult HPI - General Chief complaint: Shortness of Breath Stated complaint: Transfer Time Seen by Provider: 06/27/24 02:38 Source: patient, EMS, RN notes reviewed, old records reviewed Mode of arrival: EMS - History of Present Illness Initial comments: Patient is a an 83-year-old male who presents emergency department after being transferred from [facility] for shortness of breath. Has a history of tobacco use, ESRD on hemodialysis Tuesday, daily bladder self- catheterization with history of bladder cancer, hypertension. Brought in for approximately 1 week of a productive cough of clear sputum and shortness of breath. Has been having cold symptoms for a week. Worsened over the last day and his breathing became labored. Cough more productive today as well. No obvious fevers. Patient feels weak. Denies chest pain or abdominal pain. Denies any nausea or vomiting. States he has not missed any runs of dialysis and is due for it on Tuesday. Presents for further evaluation at this time. Was placed on BiPAP and transferred here for further care. Diagnosed with a mix of CHF as well as bilateral pneumonia based on chest x-ray and workup. Laboratory studies remarkable for elevated BNP in the outpatient setting. C urtrey, patient states his work of breathing is improved. We will trial him off of BiPAP. He is requiring approximately 5 to 6 L nasal cannula of oxygen. Denies any acute distress at this time. He was started on antibiotics at the other facility. Patient confirms he is a DNR. - Related Data Home Medications Medication Instructions Recorded Confirmed Acetaminophen Tab [Tylenol] 500 mg PO HS 05/14/24 05/14/24 Ascorbic Acid [Vitamin C] 1,000 mg PO DAILY 05/14/24 05/14/24 Atorvastatin [Lipitor] 40 mg PO HS 05/14/24 05/14/24 Calcium Acetate [PhosLo] 1,334 mg PO BID PRN 05/14/24 05/14/24 Calcium Acetate [PhosLo] 2,001 mg PO TID-W/MEALS 05/14/24 05/14/24 Cholecalciferol (Vitamin D3) 50 mcg PO DAILY 05/14/24 05/14/24 [Vitamin D3 (50 Mcg = 2000 Iu)] Doxazosin [Cardura] 4 mg PO DAILY 05/14/24 05/14/24 Furosemide [Lasix] 40 mg PO BID 05/14/24 05/14/24 Losartan Potassium 50 mg PO DAILY 05/14/24 05/14/24 [place]-3/Dha/Epa/Fish Oil [Fish Oil 1 cap PO DAILY 05/14/24 05/14/24 1,000 mg Softgel] cloNIDine HCL [Catapres] 0.3 mg PO BID 05/14/24 05/14/24 Previous Rx's Medication Instructions Recorded Darbepoetin Jax [Aranesp] 40 mcg SQ Q7D #0 each 05/16/24 Pantoprazole [Protonix] 40 mg PO DAILY #30 tab 05/16/24 Allergies Allergy/AdvReac Type Severity Reaction Status Date / Time cefazolin [From Kefzol] Allergy Rash/Hives Verified 06/27/24 02:45 hydralazine Allergy Rash/Hives Verified 06/27/24 02:45 Review of Systems ROS Statement: Those systems with pertinent positive or pertinent negative responses have been documented in the HPI. Review of Systems: CONST: Denies fever EYES: Denies blurry vision ENT: Endorses cough, congestion C/V: Denies Chest pain RESP: Endorses shortness of breath GI: Denies abdominal pain : Denies dysuria SKIN: Denies rash. MSK: Denies joint pain. NEURO: Denies headache ROS Other: All systems not noted in ROS Statement are negative. Past Medical History Past Medical History: Cancer, Dialysis, Renal Disease Additional Past Medical History / Comment(s): Bladder cancer, kidney stones History of Any Multi-Drug Resistant Organisms: None Reported Additional Past Surgical History / Comment(s): Hip surgery, hernia repair, bladder removal/neobladder, left arm fistula, excision of uvula Past Psychological History: No Psychological Hx Reported Smoking Status: Current every day smoker General Exam - General Exam Comments Initial Comments: General: Appears in no acute distress. HEAD: Normal with no signs of head trauma. EYES: EOMI ENT: Hearing grossly intact, normal oropharynx. RESPIRATORY: Mildly coarse breath sounds bilaterally. Appears normoxic on 6 L nasal cannula of oxygen. No significant increased work of breathing. C/V: Regular rate and rhythm. S1 and S2 auscultated, no edema, peripheral pulses 2+ and intact throughout. Left upper extremity AV fistula has palpable thrill and audible bruit. ABD: Abd is soft, nontender, nondistended EXT: Normal range of motion, no obvious deformity SKIN: No rashes or lesions observed on exposed skin. NEURO: Alert and oriented x 4. Course Vital Signs 06/27/24 06/27/24 02:32 04:00 Temperature 98 F Pulse Rate 86 86 Respiratory 18 18 Rate Blood Pressure 176/74 167/79 O2 Sat by Pulse 94 L 97 Oximetry Medical Decision Making - Medical Decision Making Was pt. sent in by a medical professional or institution (, PA, SOLAR SALES ENERGY ADVISOR, urgent care, hospital, or fpc...) When possible be specific @ -No Did you speak to anyone other than the patient for history (EMS, parent, family, police, friend...)? What history was obtained from this source @ -No Did you review nursing and triage notes (agree or disagree)? Why? @ -I reviewed and agree with nursing and triage notes Were old charts reviewed (outside hosp., previous admission, EMS record, old EKG, old radiological studies, urgent care reports/EKG's, fpc records)? Report findings @ -Reviewed transfer documentation from [facility] including laboratory study results. Differential Diagnosis (chest pain, altered mental status, abdominal pain women, abdominal pain men, vaginal bleeding, weakness, fever, dyspnea, syncope, headache, dizziness, GI bleed, back pain, seizure, CVA, palpatations, mental h ealth, musculoskeletal)? @ -Differential Dyspnea: Coronary syndrome, arrhythmia, tamponade, asthma, COPD, pulmonary embolism, pneumonia, pneumothorax, pulmonary effusion, anaphylaxis, diabetic ketoacidosis, flailed chest, pulmonary contusion, diaphragmatic rupture, anemia, neuromuscular, this is not meant to be an all-inclusive list. EKG interpreted by me (3pts min.). @ -As above X-rays interpreted by me (1pt min.). @ -X-ray chest reveals bilateral pulm vascular congestion versus possible bilateral pneumonia.Patient has bibasilar pleural effusions as well. CT interpreted by me (1pt min.). @ -None done U/S interpreted by me (1pt. min.). @ -None done What testing was considered but not performed or refused? (CT, X-rays, U/S, labs)? Why? @ -None What meds were considered but not given or refused? Why? @ -None Did you discuss the management of the patient with other professionals ( professionals i.e. , PA, SOLAR SALES ENERGY ADVISOR, lab, RT, psych nurse, older adult social work specialist, deckhand fishing vessel, teacher, public safety officer, shelter case manager)? Give summary @ -Discussed with nephrology, Dr. Moscoso who was in agreement with arranging for dialysis in the morning. After discussion of labs at outpatient facility as well as patient's current oxygen requirements we are both in agreement that dialysis can wait until morning and he does not require this incident. He will arrange for early education teacher dialysis. Requested I administer 80 mg of IV Lasix for the patient. Discussed the case with ARVIND Urbina of [facility] accepted the admission. Discussed the case with ICU MLRaul Mckee who is in agreement plan for consult. Was smoking cessation discussed for >3mins.? @ -No Was critical care preformed (if so, how long)? @ -Yes, 35 minutes. Were there social determinants of health that impacted care today? How? (Homelessness, low income, unemployed, alcoholism, drug addiction, transportation, low edu. Level, literacy, decrease access to med. care, longterm, rehab)? @ -No Was there de-escalation of care discussed even if they declined (Discuss DNR or withdrawal of care, Hospice)? DNR status @ -Confirmed patient is DNR. What co-morbidities impacted this encounter? (DM, HTN, Smoking, COPD, CAD, Cancer, CVA, ARF, Chemo, Hep., AIDS, mental health diagnosis, sleep apnea, morbid obesity)? @ -ESRD on hemodialysis Was patient admitted / discharged? Hospital course, mention meds given and route, prescriptions, significant lab abnormalities, going to OR and other pertinent info. @ -Based on the patient's presentation and physical exam, presents emergency department complaining of shortness of breath in the setting of ESRD on hemodi alysis. Has not missed any runs of dialysis. Required BiPAP and diagnosed with bilateral pneumonia and volume overload at outside facility. Presents for further evaluation at this time. We will continue with IV antibiotics Zosyn as well as azithromycin due to allergies. Patient is currently off BiPAP and saturating appropriately on 6 L nasal cannula. We will continue to monitor. We will repeat laboratory studies. Will repeat chest x-ray. Patient was in agreement this plan.White blood cell count was 15 at the outside hospital. Anemia however hemoglobin at the outside hospital was within appropriate limits.Patient is volume overloaded and therefore we will not administer any IV fluids at this time. EKG shows no signs of acute ischemia. Chest x-ray does show findings consistent with either atypical pneumonia bilaterally or bilateral pulmonary vascular congestion.Laboratory studies redemonstrate elevated BUN and creatinine in the setting of ESRD at 61 and 4.68. Patient is anemic. Mild leukocytosis of 12.2. On reevaluation, patient remains saturating well on 6 L nasal cannula with no significant increased work of breathing. Remainder the vital signs within acceptable limits. Patient reevaluated multiple times over the course of an hour. Patient will be admitted to the hospital at this time. He has not required BiPAP again. We will consult pulmonology and I spoke with ARVIND EDMONDS who accepted the consult. I spoke with welding machine operator gas metal arc Dr. Viveros who agreed that we will arrange for dialysis in the morning and he does not require emergent this minute dialysis. He requested 80 mg IV Lasix which was administered. I spoke with the admitting provider, ARVIND Urbina of [facility] who accepted the admission. Undiagnosed new problem with uncertain prognosis? @ -No Drug Therapy requiring intensive monitoring for toxicity (Heparin, Nitro, Insulin, Cardizem)? @ -No Were any procedures done? @ -No Diagnosis/symptom? @ -Hypoxic respiratory failure secondary to volume overload in the setting of ESRD on dialysis versus multifocal pneumonia Acute, or Chronic, or Acute on Chronic? @ -Acute Uncomplicated (without systemic symptoms) or Complicated (systemic symptoms)? @ -Complicated Side effects of treatment? @ -None Exacerbation, Progression, or Severe Exacerbation] @ -No Poses a threat to life or bodily function? @ -Yes - Lab Data Result diagrams: 06/27/24 02:48 06/27/24 02:48 Lab Results 06/27/24 06/27/24 06/27/24 Range/Units 02:48 02:48 02:48 WBC 12.2 H (3.8-10.6) k/uL RBC 2.95 L (4.30-5.90) m/uL Hgb 9.3 L D (13.0-17.5) gm/dL Hct 28.8 L (39.0-53.0) % MCV 97.5 (80.0-100.0) fL MCH 31.5 (25.0-35.0) pg MCHC 32.2 (31.0-37.0) g/dL RDW 15.0 (11.5-15.5) % Plt Count 185 (150-450) k/uL MPV 8.6 Neutrophils % 95 % Lymphocytes % 3 % Monocytes % 2 % Eosinophils % 0 % Basophils % 0 % Neutrophils # 11.5 H (1.3-7.7) k/uL Lymphocytes # 0.3 L (1.0-4.8) k/uL Monocytes # 0.3 (0-1.0) k/uL Eosinophils # 0.0 (0-0.7) k/uL Basophils # 0.0 (0-0.2) k/uL Hypochromasia Slight PT 12.5 (10.0-12.5) sec INR 1.2 H (<1.2) APTT 25.8 (22.0-30.0) sec Sodium 138 (137-145) mmol/L Potassium 5.1 (3.5-5.1) mmol/L Chloride 101 (98-107) mmol/L Carbon Dioxide 27 (22-30) mmol/L Anion Gap 10 mmol/L BUN 61 H (9-20) mg/dL Creatinine 4.68 H (0.66-1.25) mg/dL Est GFR (CKD-EPI)AfAm 12 (>60 ml/min/1.73 sqM) Est GFR (CKD-EPI)NonAf 11 (>60 ml/min/1.73 sqM) Glucose 173 H (74-99) mg/dL Plasma Lactic Acid Bill (0.7-2.0) mmol/L Calcium 9.8 (8.4-10.2) mg/dL Total Bilirubin 1.0 (0.2-1.3) mg/dL AST 25 (17-59) U/L ALT 32 (4-49) U/L Alkaline Phosphatase 94 (38-126) U/L Total Protein 6.6 (6.3-8.2) g/dL Albumin 3.7 (3.5-5.0) g/dL 06/27/24 Range/Units 02:48 WBC (3.8-10.6) k/uL RBC (4.30-5.90) m/uL Hgb (13.0-17.5) gm/dL Hct (39.0-53.0) % MCV (80.0-100.0) fL MCH (25.0-35.0) pg MCHC (31.0-37.0) g/dL RDW (11.5-15.5) % Plt Count (150-450) k/uL MPV Neutrophils % % Lymphocytes % % Monocytes % % Eosinophils % % Basophils % % Neutrophils # (1.3-7.7) k/uL Lymphocytes # (1.0-4.8) k/uL Monocytes # (0-1.0) k/uL Eosinophils # (0-0.7) k/uL Basophils # (0-0.2) k/uL Hypochromasia PT (10.0-12.5) sec INR (<1.2) APTT (22.0-30.0) sec Sodium (137-145) mmol/L Potassium (3.5-5.1) mmol/L Chloride (98-107) mmol/L Carbon Dioxide (22-30) mmol/L Anion Gap mmol/L BUN (9-20) mg/dL Creatinine (0.66-1.25) mg/dL Est GFR (CKD-EPI)AfAm (>60 ml/min/1.73 sqM) Est GFR (CKD-EPI)NonAf (>60 ml/min/1.73 sqM) Glucose (74-99) mg/dL Plasma Lactic Acid Bill 1.3 (0.7-2.0) mmol/L Calcium (8.4-10.2) mg/dL Total Bilirubin (0.2-1.3) mg/dL AST (17-59) U/L ALT (4-49) U/L Alkaline Phosphatase (38-126) U/L Total Protein (6.3-8.2) g/dL Albumin (3.5-5.0) g/dL - EKG Data -: EKG Interpreted by Me EKG Comments: 12-lead Electrocardiogram Interpretation Note EKG was reviewed and interpreted by myself. 12-lead ECG performed at 0245 is interpreted by me as revealing normal sinus rhythm at a rate of 82 beats per minute. [place] is normal. MD interval is 175 ms, QRS duration is 93 ms, QTc is 410 ms.. There were no ST or T wave abnormalities to suggest myocardial ischem ia or injury. R wave progression across the precordium was satisfactory. PVC present. By my interpretation this EKG is non-diagnostic for acute ischemia. Critical Care Time Critical Care Time: Yes Total Critical Care Time: 35 Disposition Clinical Impression: Hypoxic respiratory failure, Volume overload, ESRD on hemodialysis, Pneumonia Disposition: ADMITTED IP TO THIS HOSP Condition: Serious Referrals: Santi Partida MD [Primary Care Provider] - 1-2 days Time of Disposition: 03:37
[2024-06-27] MEDS: FUROSEMIDE 10 MG/ML 10 ML VIAL IV STA (03:33)
[2024-06-27 03:35] LABS: ALT 32 U/L (4-49); AST 25 U/L (17-59); African American GFR (CKD) 12 (>60 ml/min/1.73 sqM); Albumin 3.7 g/dL (3.5-5.0); Alkaline Phosphatase 94 U/L (38-126); Anion Gap 10 mmol/L; Blood Urea Nitrogen 61 mg/dL (9-20); Calcium 9.8 mg/dL (8.4-10.2); Carbon Dioxide 27 mmol/L (22-30); Chloride 101 mmol/L (98-107); Glucose 173 mg/dL (74-99); Non-African American GFR(CKD) 11 (>60 ml/min/1.73 sqM); Potassium 5.1 mmol/L (3.5-5.1); Sodium 138 mmol/L (137-145); Total Protein 6.6 g/dL (6.3-8.2)
[2024-06-27] MEDS ORDERED: NALOXONE 0.4 MG/ML 1 ML VIAL IV PRN (03:37)
[2024-06-27] MEDS: AZITHROMYCIN 500 MG in SODIUM CHLORIDE 0.9% 250 ML IVPB STA (03:37)
[2024-06-27] MEDS ORDERED: ONDANSETRON 4 MG/2 ML VIAL IVP PRN (03:37)
[2024-06-27] MEDS ORDERED: ACETAMINOPHEN TAB 325 MG TAB PO PRN (03:37)
[2024-06-27 03:43] LABS: INR 1.2 (<1.2); Partial Thromboplastin Time 25.8 sec (22.0-30.0); Prothrombin Time 12.5 sec (10.0-12.5)
[2024-06-27 03:57] LABS: Basophils % (A) 0 %; Eosinophils % (A) 0 %; HCT 28.8 % (39.0-53.0); Hypochromasia Slight; Lymphocytes # (A) 0.3 k/uL (1.0-4.8); Lymphocytes % (A) 3 %; MCH 31.5 pg (25.0-35.0); MCHC 32.2 g/dL (31.0-37.0); MCV 97.5 fL (80.0-100.0); Mean Platelet Volume 8.6; Monocytes # (A) 0.3 k/uL (0-1.0); Monocytes % (A) 2 %; Neutrophils # (A) 11.5 k/uL (1.3-7.7); Neutrophils % (A) 95 %; Platelet Count 185 k/uL (150-450); RBC 2.95 m/uL (4.30-5.90); WBC 12.2 k/uL (3.8-10.6)
[2024-06-27 04:00] LABS: HGB 9.3 gm/dL (13.0-17.5)
[2024-06-27] MEDS: HEPARIN SODIUM,PORCINE 5,000 UNIT/ML 1 ML VIAL SQ SCH (04:20)
--- NOTE | 2024-06-27 05:07 | XR ---
EXAM: XR Chest, 1 View CLINICAL HISTORY: ITS.REASON XR Reason: dyspnea TECHNIQUE: Frontal view of the chest. COMPARISON: No relevant prior studies available. FINDINGS: Lungs: Prominence of the bilateral pulmonary vasculature. No consolidation. Pleural space: Blunting of bilateral costophrenic angles. No pneumothorax. Heart: Moderate enlargement of the cardiac silhouette. Mediastinum: Unremarkable. Normal mediastinal contour. Bones/joints: Degenerative changes is seen in the spine and shoulders. No acute fracture. Vasculature: Calcifications overlie the aorta. IMPRESSION: 1. Bibasilar pleural effusions with adjacent atelectasis and underlying pneumonia not excluded. 2. Mild to moderate pulmonary edema.
[2024-06-27] MEDS: PIPERACILLIN-TAZOBACTAM 3.375 GM in SODIUM CHLORIDE 0.9% 100 ML IVPB SCH ×2 (05:53→19:22)
[2024-06-27 06:14] LABS: Appearance,Urine Cloudy (Clear); Bacteria,Urine Moderate /hpf; Bilirubin,Urine Negative (Negative); Blood,Urine Small (Negative); Color,Urine Yellow; Glucose,Urine (UA) Negative (Negative); Hyaline Casts,Urine 2 /lpf (0-2); Ketones,Urine Negative (Negative); Leukocyte Esterase,Urine Large (Negative); Mucus,Urine Rare /hpf; Nitrite,Urine Negative (Negative); Protein,Urine 3+ (Negative); RBC,Urine 10 /hpf (0-5); Specific Gravity,Urine 1.014 (1.001-1.035); Urobilinogen,Urine <2.0 mg/dL (<2.0); WBC,Urine >182 /hpf (0-5)
--- NOTE | 2024-06-27 07:23 | P.CNPUL ---
History of Present Illness Consult date: 06/27/24 Requesting physician: Felix Vela Chief complaint: shortness of breath History of present illness: Patient is an 83-year-old male with past medical history significant for end- stage renal disease (receives hemodialysis on a Tuesday, Tuesday, Tuesday basis), bladder cancer with resection and neobladder, intermittent straight caths, hypertension, hyperlipidemia, tobacco smoker. Patient was transferred f [facility] early this morning. Presented to the outside facility in respiratory distress, placed on BiPAP, and transferred to our facility. Chest x-ray consistent with pulmonary edema/fluid overload. Patient is currently being evaluated in the emergency department, room 5. He is not a very reliable historian. He is on 6 L/min nasal cannula. SpO2 is 97%. No respiratory distress. No accessory muscle use or conversational dyspnea. Patient denies missing any hemodialysis treatments. Started with a "cold" earlier in the week, Does report intermittent nonproductive cough. Denies any fevers, sputum production, chest pain, hemoptysis. Negative for COVID, influenza, RSV at outs [facility] facility. He was empirically placed on Zosyn and azithromycin in the ED. CBC: WC count 12.2, hemoglobin 9.3, hematocrit 28.8, platelet 185. CMP: Sodium 138, potassium 5.1, chloride 101, serum bicarb 27, BUN 61, creatinine 4.68, glucose 173. Urinalysis positive for leukocytes and bacteria. He denies any urinary complaint such as dysuria, hematuria. He does intermittently straight cath twice a day. Not anuric. He was given 80 mg of Lasix in the ED. Nephrology has been contacted, and patient will receive hemodialysis this morning. Review of Systems Constitutional: Denies chills, Denies fever, Denies poor appetite, Denies weight gain, Denies weight loss Ears, nose, mouth and throat: Denies nasal congestion, Denies nasal discharge, Denies post-nasal drip, Denies sinus pain, Denies sinus pressure, Denies sore throat Respiratory: Reports cough, Denies congestion, Denies cough with sputum, Denies hemoptysis, Denies home oxygen, Denies wheezing Gastrointestinal: Denies abdominal pain, Denies change in bowel habits, Denies nausea, Denies vomiting Genitourinary: Reports urinary retention, Denies dysuria, Denies flank pain, Denies hematuria Musculoskeletal: Denies leg numbness/tingling Integumentary: Denies rash Neurological: Denies seizures, Denies syncope Psychiatric: Denies anxiety, Denies depression Past Medical History Past Medical History: Cancer, Dialysis, Renal Disease Additional Past Medical History / Comment(s): Bladder cancer, kidney stones History of Any Multi-Drug Resistant Organisms: None Reported Additional Past Surgical History / Comment(s): Hip surgery, hernia repair, bladder removal/neobladder, left arm fistula, excision of uvula Past Psychological History: No Psychological Hx Reported Smoking Status: Current every day smoker Medications and Allergies Home Medications Medication Instructions Recorded Confirmed Type Acetaminophen Tab [Tylenol] 500 mg PO HS 05/14/24 06/27/24 History Ascorbic Acid [Vitamin C] 1,000 mg PO DAILY 05/14/24 06/27/24 History Atorvastatin [Lipitor] 40 mg PO HS 05/14/24 06/27/24 History Calcium Acetate [PhosLo] 1,334 mg PO BID PRN 05/14/24 06/27/24 History Calcium Acetate [PhosLo] 2,001 mg PO TID-W/MEALS 05/14/24 06/27/24 History Cholecalciferol (Vitamin D3) 50 mcg PO DAILY 05/14/24 06/27/24 History [Vitamin D3 (50 Mcg = 2000 Iu)] Doxazosin [Cardura] 4 mg PO DAILY 05/14/24 06/27/24 History Furosemide [Lasix] 40 mg PO BID 05/14/24 06/27/24 History Losartan Potassium 50 mg PO DAILY 05/14/24 06/27/24 History [place]-3/Dha/Epa/Fish Oil [Fish Oil 1 cap PO DAILY 05/14/24 06/27/24 History 1,000 mg Softgel] cloNIDine HCL [Catapres] 0.3 mg PO BID 05/14/24 06/27/24 History Pantoprazole [Protonix] 40 mg PO DAILY #30 tab 05/16/24 06/27/24 Rx Clopidogrel [Plavix] 75 mg PO DAILY 06/27/24 06/27/24 History Allergies Allergy/AdvReac Type Severity Reaction Status Date / Time cefazolin [From Kefzol] Allergy Rash/Hives Verified 06/27/24 08:11 hydralazine Allergy Rash/Hives Verified 06/27/24 08:11 Physical Exam Vitals: Vital Signs Temp Pulse Resp BP Pulse Ox 06/27/24 06:00 77 18 143/70 100 06/27/24 04:00 86 18 167/79 97 06/27/24 02:32 98 F 86 18 176/74 94 L Intake and Output 06/26/24 06/26/24 06/27/24 14:59 22:59 06:59 Other: Weight 77.111 kg GENERAL EXAM: Alert, 83-year-old white male, on 6 L/min nasal cannula, no respiratory distress, no conversational dyspnea or accessory muscle use, comfortable in no apparent distress. HEAD: Normocephalic and atraumatic EYES: Normal reaction of pupils, equal size. NOSE: Clear with pink turbinates. THROAT: No erythema or exudates. NECK: No masses, no JVD. CHEST: No chest wall deformity. LUNGS: Equal air entry with bibasilar inspiratory crackles. On 6 L/min nasal cannula. SpO2 97%. CVS: S1 and S2 normal with no audible murmur, regular rhythm. No extra heart sounds ABDOMEN: No hepatosplenomegaly, active bowel sounds, no guarding or rigidity. SPINE: No scoliosis or deformity SKIN: No rashes CENTRAL NERVOUS SYSTEM: No focal deficits, tone is normal in all 4 extremities. EXTREMITIES: There is mild nonpitting bilateral lower extremity edema. No clubbing, or cyanosis. Peripheral pulses are intact. Left arm AV fistula with positive bruit and thrill Results - Laboratory Findings CBC and BMP: 06/27/24 02:48 06/27/24 02:48 PT/INR, D-dimer PT 12.5 sec (10.0-12.5) 06/27/24 02:48 INR 1.2 (<1.2) H 06/27/24 02:48 Abnormal lab findings: Abnormal Labs 06/27/24 06/27/24 06/27/24 02:42 02:48 02:48 WBC 12.2 H RBC 2.95 L Hgb 9.3 L D Hct 28.8 L Neutrophils # 11.5 H Lymphocytes # 0.3 L INR 1.2 H BUN Creatinine Glucose Urine Protein 3+ H Urine Blood Small H Ur Leukocyte Esterase Large H Urine RBC 10 H Urine WBC >182 H Urine Bacteria Moderate H Urine Mucus Rare H 06/27/24 02:48 WBC RBC Hgb Hct Neutrophils # Lymphocytes # INR BUN 61 H Creatinine 4.68 H Glucose 173 H Urine Protein Urine Blood Ur Leukocyte Esterase Urine RBC Urine WBC Urine Bacteria Urine Mucus - Diagnostic Findings Chest x-ray: image reviewed Assessment and Plan Assessment: Acute hypoxemic respiratory failure, secondary to fluid overload and pulmonary edema, Chest x-ray shows pulmonary vascular congestion, bibasilar pleural effusions with adjacent atelectasis. End-stage renal disease, undergoes hemodialysis treatments on Tuesday, Tuesday, Tuesday schedule. Denies missing any sessions of hemodialysis Anemia of chronic disease, secondary to above Possible UTI History of bladder cancer and neobladder, intermittently straight caths twice daily History of hypertension History of hyperlipidemia Former tobacco dependence Plan: Patient's medications, labs, chest x-ray reviewed Patient transferred from outside facility early this morning on BiPAP, transitioned to 6 L nasal cannula Patient was given 80 mg of IV push Lasix in the ED, reportedly not anuric Intermittent straight cath as needed Nephrology has been contacted, plans for hemodialysis this morning Empirically covered on antibiotics. Will check procalcitonin, and manage antibiotics accordingly. Will continue to follow I have personally seen and examined the patient, performed the documentation and the assessment and plan as written. Number of minutes spent on the visit:20 This is a joint evaluation that was done along with the nurse practitioner. Thi s evaluation was done more than 30 minutes. The patient presented with acute hypoxic respiratory failure and pulmonary edema. The patient underwent emergent dialysis in the emergency department. The patient was on a BiPAP from the Emergency Department. The patient was taken off the BiPAP and currently he is on 6 L O2 nasal cannula. He has some cough and congestion and wheeze in addition. I am better. The patient had a viral screen that came back negative. He does self-catheterization and the patient is still producing urine output. No significant electrolyte imbalance. He has chronic anemia. He is currently on a combination of Zosyn and vancomycin as a broad-spectrum antibiotic coverage suspecting pneumonia. He is on torsemide. Will repeat chest x-ray in the morning. Will continue to follow overall condition is improved post hemodialysis. Time with Patient: Greater than 30
[2024-06-27] MEDS: PANTOPRAZOLE 40 MG TABLET PO SCH (07:29)
[2024-06-27] MEDS ORDERED: PIPERACILLIN-TAZOBACTAM 3.375 GM in SODIUM CHLORIDE 0.9% 100 ML IVPB SCH (08:17)
--- NOTE | 2024-06-27 10:10 | P.NPCON ---
History of Present Illness - Reason for Consult end stage renal disease - History of Present Illness Reason for consultation: End-stage renal disease History of present illness: Patient is a 83-year-old male seen in renal consultation for end-stage renal disease. Patient was seen and examined in the emergency room. Patient was transferred from another facility. He was initially on BiPAP but is now on nasal cannula. He is maintained on hemodialysis on Tuesday schedule via left upper extremity AV fistula. Patient came to the hospital due to shortness of breath. Patient states he did not miss any dialysis treatments. Patient states he makes little urine and is variable day by day. He does admit to a nonproductive cough. No fever or chills. Denies history of coronary artery disease. No history of diabetes. Currently undergoing hemodialysis. Vital signs are stable. General: No acute distress. HEENT: Head exam is unremarkable. On nasal cannula. LUNGS: No audible rhonchi or wheezes. HEART: Rate and Rhythm are regular. ABDOMEN: Nontender. EXTREMITITES: No edema. Past Medical History Past Medical History: Cancer, Dialysis, Renal Disease Additional Past Medical History / Comment(s): Bladder cancer, kidney stones History of Any Multi-Drug Resistant Organisms: None Reported Additional Past Surgical History / Comment(s): Hip surgery, hernia repair, bl adder removal/neobladder, left arm fistula, excision of uvula Past Psychological History: No Psychological Hx Reported Smoking Status: Current every day smoker Medications and Allergies Home Medications Medication Instructions Recorded Confirmed Type Acetaminophen Tab [Tylenol] 500 mg PO HS 05/14/24 06/27/24 History Ascorbic Acid [Vitamin C] 1,000 mg PO DAILY 05/14/24 06/27/24 History Atorvastatin [Lipitor] 40 mg PO HS 05/14/24 06/27/24 History Calcium Acetate [PhosLo] 1,334 mg PO BID PRN 05/14/24 06/27/24 History Calcium Acetate [PhosLo] 2,001 mg PO TID-W/MEALS 05/14/24 06/27/24 History Cholecalciferol (Vitamin D3) 50 mcg PO DAILY 05/14/24 06/27/24 History [Vitamin D3 (50 Mcg = 2000 Iu)] Doxazosin [Cardura] 4 mg PO DAILY 05/14/24 06/27/24 History Furosemide [Lasix] 40 mg PO BID 05/14/24 06/27/24 History Losartan Potassium 50 mg PO DAILY 05/14/24 06/27/24 History [place]-3/Dha/Epa/Fish Oil [Fish Oil 1 cap PO DAILY 05/14/24 06/27/24 History 1,000 mg Softgel] cloNIDine HCL [Catapres] 0.3 mg PO BID 05/14/24 06/27/24 History Pantoprazole [Protonix] 40 mg PO DAILY #30 tab 05/16/24 06/27/24 Rx Clopidogrel [Plavix] 75 mg PO DAILY 06/27/24 06/27/24 History Allergies Allergy/AdvReac Type Severity Reaction Status Date / Time cefazolin [From Kefzol] Allergy Rash/Hives Verified 06/27/24 08:11 hydralazine Allergy Rash/Hives Verified 06/27/24 08:11 Physical Exam Vitals: Vital Signs Temp Pulse Resp BP Pulse Ox 06/27/24 08:27 71 152/72 100 06/27/24 07:25 74 18 160/77 99 06/27/24 06:00 77 18 143/70 100 06/27/24 04:00 86 18 167/79 97 06/27/24 02:32 98 F 86 18 176/74 94 L Intake and Output 06/26/24 06/27/24 06/27/24 22:59 06:59 14:59 Other: Weight 77.111 kg Results - Lab Results Most recent lab results Calcium 9.8 mg/dL (8.4-10.2) 06/27/24 02:48 06/27/24 02:48 06/27/24 02:48 Assessment and Plan Plan: Assessment: 1. End-stage renal disease maintained on hemodialysis on Tuesday schedule via left upper extremity AV fistula. 2. Acute hypoxic respiratory failure. 3. Volume overload. 4. Anemia of chronic kidney disease. 5. Chronic kidney disease mineral bone disease maintained on PhosLo. 6. Questionable pneumonia maintained on antibiotics. Also concern for UTI. Plan: Currently seen while undergoing hemodialysis. Check iron studies. Follow-up echocardiogram. Change Lasix to torsemide. Thank you for the consultation. I will continue to follow the patient with you during his hospital stay.
[2024-06-27] MEDS: FUROSEMIDE 40 MG TAB PO SCH (13:27)
[2024-06-27] MEDS: CLOPIDOGREL 75 MG TAB PO SCH (15:01)
[2024-06-27] MEDS: CALCIUM ACETATE 667 MG TAB PO SCH (15:01)
[2024-06-27 16:10] LABS: % Iron Saturation 11.36 (15.00-50.00)
--- NOTE | 2024-06-27 17:18 | CA ---
Transthoracic Echo Report Name: Shawn Luque Age: 83 Gender: M : 1940 Exam Date: 06/27/2024 13:54 Exam Location: [place] [facility] Ht (in): 73 Wt (lb): 170 Ordering Physician: Mamadou Cantrell Attending/Referring Phys: Cardiology Clinical Nurse Specialist Jackie Patino RDCS Procedure CPT: Indications: evaluate LV function Cardiac Hx: Mitral regurgitation and iritic stenosis Technical Quality: Good Contrast 1: Total Dose (mL): Contrast 2: Total Dose (mL): MEASUREMENTS (Male / Female) Normal Values 2D ECHO LV Diastolic Diameter PLAX 5.7 cm 4.2 - 5.9 / 3.9 - 5.3 cm LV Systolic Diameter PLAX 4.2 cm IVS Diastolic Thickness 1.2 cm 0.6 - 1.0 / 0.6 - 0.9 cm LVPW Diastolic Thickness 1.3 cm 0.6 - 1.0 / 0.6 - 0.9 cm LV Relative Wall Thickness 0.4 RV Internal Dim ED PLAX 1.9 cm LVOT Diameter 2.0 cm LA Systolic Diameter LX 5.3 cm 3.0 - 4.0 / 2.7 - 3.8 cm LV Diastolic Volume MOD BP 132.4 cm??? 67 - 155 / 56 - 104 cm??? LV Systolic Volume MOD BP 57.8 cm??? - 58 / 19 - 49 cm??? LV Ejection Fraction MOD BP 56.3 % >= 55 % LV Cardiac Index MOD BP 2810.3 cm???/min???m??? LV Diastolic Volume MOD 4C 115.1 cm??? LV Systolic Volume MOD 4C 46.7 cm??? LV Ejection Fraction MOD 4C 59.4 % LV Cardiac Index MOD 4C 2576.8 cm???/min???m??? LV Diastolic Length 4C 8.6 cm LV Systolic Length 4C 7.1 cm LV Diastolic Volume MOD 2C 142.3 cm??? LV Systolic Volume MOD 2C 61.0 cm??? LV Ejection Fraction MOD 2C 57.1 % LV Cardiac Index MOD 2C 3063.5 cm???/min???m??? LV Diastolic Length 2C 9.3 cm LV Systolic Length 2C 8.5 cm LA Volume 139.3 cm??? 18 - 58 / 22 - 52 cm??? LA Volume Index 70.0 cm???/m??? 16 - 28 cm???/m??? M-MODE Aortic Root Diameter MM 3.6 cm LA Systolic Diameter MM 4.9 cm LA Ao Ratio MM 1.4 AV Cusp Separation MM 0.7 cm DOPPLER AV Peak Velocity 415.3 cm/s AV Peak Gradient 69.0 mmHg AV Mean Velocity 306.7 cm/s AV Mean Gradient 41.5 mmHg AV Velocity Time Integral 97.8 cm AI Peak Velocity 388.9 cm/s AI Peak Gradient 60.5 mmHg AI Pressure Half Time 518.4 ms LVOT Peak Velocity 115.8 cm/s LVOT Peak Gradient 5.4 mmHg LVOT Velocity Time Integral 31.1 cm LVOT Stroke Volume 100.6 cm??? LVOT Stroke Volume Index 50.1 ml/m??? LVOT Cardiac Index 3790.8 cm???/min???m??? AV Area Cont Eq vti 1.0 cm??? AV Area Cont Eq pk 0.9 cm??? MV Area PHT 3.0 cm??? Mitral E Point Velocity 144.0 cm/s Mitral A Point Velocity 123.5 cm/s Mitral E to A Ratio 1.2 MV Deceleration Time 251.2 ms TR Peak Velocity 288.4 cm/s TR Peak Gradient 33.3 mmHg Right Ventricular Systolic Press 48.3 mmHg FINDINGS Left Ventricle Left ventricular ejection fraction is estimated at 55-60 %. Mildly increased septal wall thickness. Normal left ventricular systolic function with no obvious regional wall motion abnormalities. Left ventricular cavity size normal. Right Ventricle Normal right ventricular size and function. Moderate pulmonary hypertension. Right Atrium Severe right atrial dilatation. Left Atrium Severely increased left atrial diameter. Severely increased left atrial volume. Moderately increased left atrial area. Mitral Valve Mitral valve thickened. Mitral annular calcification. [id number] mitral regurgitation. No mitral stenosis. Aortic Valve Severe aortic stenosis with a peak velocity of 4.15m/s, peak gradient 69mmHg, mean gradient 41 mmHg. Moderate aortic regurgitation. Tricuspid Valve Structurally normal tricuspid valve. Mild tricuspid regurgitation. No tricuspid stenosis. Pulmonic Valve Structurally normal pulmonic valve. Trace pulmonic regurgitation. No pulmonic stenosis. Pericardium Left pleural effusion. No pericardial effusion. Aorta Normal size aortic root and proximal ascending aorta. CONCLUSIONS Normal LV function Moderate pulmonary hypertension Moderate to severe mitral regurgitation Severe aortic stenosis Moderate aortic regurgitation Previewed by: Dr. Ovi Kim MD (Electronically Signed) Final Date: 27 June 2024 17:17
[2024-06-27] MEDS: IPRATROPIUM-ALBUTEROL 3 ML NEB INHALATION SCH (20:03)
[2024-06-27] MEDS: ATORVASTATIN 40 MG TAB PO SCH (22:21)
--- NOTE | 2024-06-27 23:44 | P.HPIM ---
History of Present Illness H&P Date: 06/27/24 Chief Complaint: Difficulty breathing Patient is a 73-year-old male with a past medical history of ESRD on hemodialysis Tuesday and Tuesday left upper extremity AV fistula, history of bladder cancer/removal/neobladder, hypertension, hyperlipidemia and current everyday smoker. Patient also does straight catheterization. Patient was transferred from [facility]. Patient presents to ER with complaints of worsening shortness of breath/respiratory distress and was placed on BiPAP. Patient was given a dose of IV Lasix in the ER and antibiotics azithromycin. Eventually patient was transitioned to 6 L oxygen via nasal cannula. Currently patient will need ER. Patient otherwise denied any recent hemodialysis. No complaints of fever or chills. No nausea vomiting abdominal pain or diarrhea. Chest x-ray showed bibasilar pleural effusions with adjacent atelectasis central underlying pneumonia not excluded. Mild to moderate pulmonary edema. EKG showed sinus rhythm with occasional ventricular premature complexes. Laboratory data showed WBC 12.2 hemoglobin 9.3 and platelets 185 sodium 138 potassium 5.1 chloride 101 bicarbonate 27 BUN 61 creatinine 4.68 and blood sugar 173. Laboratory data showed small blood large leukocyte esterase with RBCs 10 and WBC greater than 182 Influenza A B RSV and COVID-19 PCR not detected. Review of Systems Constitutional: Patient denies any fever or chills . No generalized weakness or weight loss. Abdomen: Patient denied nausea vomiting and diarrhea and abdominal pain. Cardiovascular: Patient denies any chest pain. Positive for short of breath no palpitations. Respiratory: patient denied any cough or sputum production. Positive for shortness of breath Neurologic: Patient denied any numbness or tingling. no headache. Musculoskeletal: Patient denies any complaints of joint swelling or deformity. Skin: Negative Psychiatric: Negative Endocrine: No heat or cold intolerance. No recent weight gain. Genitourinary: No dysuria or hematuria. All other 14 point ROS negative except the above Past Medical History Past Medical History: Cancer, Dialysis, Renal Disease Additional Past Medical History / Comment(s): Bladder cancer, kidney stones History of Any Multi-Drug Resistant Organisms: None Reported Additional Past Surgical History / Comment(s): Hip surgery, hernia repair, bladder removal/neobladder, left arm fistula, excision of uvula Past Psychological History: No Psychological Hx Reported Smoking Status: Current every day smoker Medications and Allergies Home Medications Medication Instructions Recorded Confirmed Type Acetaminophen Tab [Tylenol] 500 mg PO HS 05/14/24 06/27/24 History Ascorbic Acid [Vitamin C] 1,000 mg PO DAILY 05/14/24 06/27/24 History Atorvastatin [Lipitor] 40 mg PO HS 05/14/24 06/27/24 History Calcium Acetate [PhosLo] 1,334 mg PO BID PRN 05/14/24 06/27/24 History Calcium Acetate [PhosLo] 2,001 mg PO TID-W/MEALS 05/14/24 06/27/24 History Cholecalciferol (Vitamin D3) 50 mcg PO DAILY 05/14/24 06/27/24 History [Vitamin D3 (50 Mcg = 2000 Iu)] Doxazosin [Cardura] 4 mg PO DAILY 05/14/24 06/27/24 History Furosemide [Lasix] 40 mg PO BID 05/14/24 06/27/24 History Losartan Potassium 50 mg PO DAILY 05/14/24 06/27/24 History [place]-3/Dha/Epa/Fish Oil [Fish Oil 1 cap PO DAILY 05/14/24 06/27/24 History 1,000 mg Softgel] cloNIDine HCL [Catapres] 0.3 mg PO BID 05/14/24 06/27/24 History Pantoprazole [Protonix] 40 mg PO DAILY #30 tab 05/16/24 06/27/24 Rx Clopidogrel [Plavix] 75 mg PO DAILY 06/27/24 06/27/24 History Allergies Allergy/AdvReac Type Severity Reaction Status Date / Time cefazolin [From Kefzol] Allergy Rash/Hives Verified 06/27/24 08:11 hydralazine Allergy Rash/Hives Verified 06/27/24 08:11 Physical Exam Vitals: Vital Signs Temp Pulse Resp BP Pulse Ox 06/27/24 08:27 71 152/72 100 06/27/24 07:25 74 18 160/77 99 06/27/24 06:00 77 18 143/70 100 06/27/24 04:00 86 18 167/79 97 06/27/24 02:32 98 F 86 18 176/74 94 L Intake and Output 06/26/24 06/27/24 06/27/24 22:59 06:59 14:59 Other: Weight 77.111 kg PHYSICAL EXAMINATION: Patient is lying in the bed comfortably, no acute distress, awake alert and oriented.. HEENT: Normocephalic. Neck is supple. Pupils reactive. Nostrils clear. Oral cavity is moist. Neck reveals no JVD, carotid bruits, or thyromegaly. CHEST EXAMINATION: Trachea is central. Symmetrical expansion. Lung chase clear to auscultation and percussion. CARDIAC: Normal S1, S2 with no gallops. + murmur ABDOMEN: Soft. Bowel sounds normal. No organomegaly. No abdominal bruits. Extremities: reveal no edema. Left arm AV fistula present. No clubbing or cyanosis Neurologically awake, alert, oriented x3 with well-coordinated movements. No focal deficits noted Skin: No rash or skin lesions. Psychiatric: Coperative. Nonsuicidal Musculoskeletal: No joint swelling or deformity. Normal range of motion. Results CBC & Chem 7: 06/28/24 06:34 06/28/24 06:34 Labs: Abnormal Lab Results - Last 24 Hours (Table) 06/27/24 06/27/24 06/27/24 Range/Units 02:42 02:48 02:48 WBC 12.2 H (3.8-10.6) k/uL RBC 2.95 L (4.30-5.90) m/uL Hgb 9.3 L D (13.0-17.5) gm/dL Hct 28.8 L (39.0-53.0) % Neutrophils # 11.5 H (1.3-7.7) k/uL Lymphocytes # 0.3 L (1.0-4.8) k/uL INR 1.2 H (<1.2) BUN (9-20) mg/dL Creatinine (0.66-1.25) mg/dL Glucose (74-99) mg/dL Urine Protein 3+ H (Negative) Urine Blood Small H (Negative) Ur Leukocyte Esterase Large H (Negative) Urine RBC 10 H (0-5) /hpf Urine WBC >182 H (0-5) /hpf Urine Bacteria Moderate H (None) /hpf Urine Mucus Rare H (None) /hpf 06/27/24 Range/Units 02:48 WBC (3.8-10.6) k/uL RBC (4.30-5.90) m/uL Hgb (13.0-17.5) gm/dL Hct (39.0-53.0) % Neutrophils # (1.3-7.7) k/uL Lymphocytes # (1.0-4.8) k/uL INR (<1.2) BUN 61 H (9-20) mg/dL Creatinine 4.68 H (0.66-1.25) mg/dL Glucose 173 H (74-99) mg/dL Urine Protein (Negative) Urine Blood (Negative) Ur Leukocyte Esterase (Negative) Urine RBC (0-5) /hpf Urine WBC (0-5) /hpf Urine Bacteria (None) /hpf Urine Mucus (None) /hpf Thrombosis Risk Factor Assmnt - DVT/VTE Prophylaxis DVT/VTE Prophylaxis: Pharmacologic Prophylaxis ordered Assessment and Plan Assessment: Acute hypoxic respiratory failure secondary to pulmonary edema and possible pneumonia ESRD on hemodialysis Tuesday left upper extremity AV fistula. Possible urinary tract infection History of bladder cancer with surgery and neobladder. Anemia of chronic disease with hemoglobin 9.3 rule out iron deficiency. Hypertension Hyperlipidemia History of nephrolithiasis Currently everyday smoker Intermittent straight catheterization GI and DVT prophylaxis with PPI and heparin subcu Plan: Patient will be continued on oxygen via nasal cannula. Titrate down to room air. Patient was given a dose of IV Lasix and nephrology was consulted for hemodialysis. Patient is scheduled for hemodialysis today. Patient will be continued on Zosyn and azithromycin and ordered procalcitonin level. Continue with home medications. Discussed with the patient and his at bedside in detail. Prognosis guarded. Follow-up closely. Pulmonary and nephrology is on board. Time with Patient: Greater than 30
[2024-06-28] MEDS: AZITHROMYCIN 500 MG in SODIUM CHLORIDE 0.9% 250 ML IVPB SCH (00:38)
[2024-06-28 07:53] LABS: Basophils % (A) 0 %; Eosinophils % (A) 0 %; HGB 9.9 gm/dL (13.0-17.5); Hypochromasia Slight; Lymphocytes # (A) 1.6 k/uL (1.0-4.8); Lymphocytes % (A) 21 %; MCHC 31.9 g/dL (31.0-37.0); MCV 97.2 fL (80.0-100.0); Mean Platelet Volume 8.7; Monocytes # (A) 0.4 k/uL (0-1.0); Monocytes % (A) 5 %; Neutrophils # (A) 5.3 k/uL (1.3-7.7); Neutrophils % (A) 72 %; Platelet Count 212 k/uL (150-450); RBC 3.19 m/uL (4.30-5.90); RDW 15.1 % (11.5-15.5); WBC 7.4 k/uL (3.8-10.6)
[2024-06-28 08:23] LABS: ALT 29 U/L (4-49); AST 23 U/L (17-59); African American GFR (CKD) 18 (>60 ml/min/1.73 sqM); Albumin 3.5 g/dL (3.5-5.0); Alkaline Phosphatase 74 U/L (38-126); Anion Gap 5 mmol/L; Blood Urea Nitrogen 45 mg/dL (9-20); Calcium 9.2 mg/dL (8.4-10.2); Carbon Dioxide 33 mmol/L (22-30); Chloride 95 mmol/L (98-107); Glucose 96 mg/dL (74-99); Non-African American GFR(CKD) 16 (>60 ml/min/1.73 sqM); Potassium 4.7 mmol/L (3.5-5.1); Sodium 133 mmol/L (137-145); Total Bilirubin 0.7 mg/dL (0.2-1.3); Total Protein 6.1 g/dL (6.3-8.2)
[2024-06-28] MEDS: TORSEMIDE 20 MG TAB PO SCH (08:23)
--- NOTE | 2024-06-28 08:42 | XR ---
EXAMINATION TYPE: XR chest 1V DATE OF EXAM: 06/28/2024 8:36 AM COMPARISON: Chest radiographs from 06/27/2024 CLINICAL INDICATION: Male, 83 years old with history of CHF; TECHNIQUE: XR chest 1V Frontal view of the chest. FINDINGS: Lungs/Pleura: There is no evidence of pleural effusion, focal consolidation, or pneumothorax. Pulmonary vascularity: Pulmonary vascular congestion. Heart/mediastinum: Cardiomediastinal silhouette is enlarged. Atherosclerotic calcifications are seen in the aorta. Musculoskeletal: No acute osseous pathology. Other findings: None IMPRESSION: Similar interstitial prominence suggestive of pulmonary edema with cardiomegaly. [facility], , 06/28/2024 8:39 AM
--- NOTE | 2024-06-28 11:49 | P.PN ---
Subjective Patient is seen in follow-up for end-stage renal disease. He is maintained on hemodialysis on Tuesday schedule. Tolerated 3-1/2 L ultrafiltration yesterday. Feels better today. Still on 6 L nasal cannula. Vital signs are stable. General: No acute distress. HEENT: Head exam is unremarkable. On nasal cannula. LUNGS: No audible rhonchi or wheezes. HEART: Rate and Rhythm are regular. ABDOMEN: Nontender. EXTREMITITES: No edema. Objective - Vital Signs Vital signs: Vital Signs Temp 97.4 F L 06/28/24 08:17 Pulse 88 06/28/24 08:50 Resp 20 06/28/24 08:17 BP 147/80 06/28/24 08:17 Pulse Ox 95 06/28/24 08:17 FiO2 Intake & Output 06/27/24 06/28/24 06/28/24 18:59 06:59 18:59 Intake Total 500 118 Output Total 7500 150 Balance -7000 -32 Weight 77.2 kg Intake: Oral 118 Hemodialysis 500 Output: Urine 150 Hemodialysis 4000 Hemodialysis Net Amount 3500 Other: Voiding Method Self-Catheterization Self-Catheterization # Voids 1 - Labs CBC & Chem 7: 06/28/24 06:34 06/28/24 06:34 Labs: Abnormal Lab Results - Last 24 Hours (Table) 06/27/24 06/28/24 06/28/24 Range/Units 10:39 06:34 06:34 RBC 3.19 L (4.30-5.90) m/uL Hgb 9.9 L (13.0-17.5) gm/dL Hct 31.0 L (39.0-53.0) % Sodium 133 L (137-145) mmol/L Chloride 95 L (98-107) mmol/L Carbon Dioxide 33 H (22-30) mmol/L BUN 45 H (9-20) mg/dL Creatinine 3.42 H (0.66-1.25) mg/dL Iron 25 L (65-175) UG/DL TIBC 220 L (228-460) UG/DL % Saturation 11.36 L (15.00-50.00) Transferrin 157.0 L (204.0-354.0) mg/dL Ferritin 1582.0 H (22.0-322.0) ng/mL Total Protein 6.1 L (6.3-8.2) g/dL Assessment and Plan Plan: Assessment: 1. End-stage renal disease maintained on hemodialysis on Tuesday schedule via left upper extremity AV fistula. 2. Acute hypoxic respiratory failure. Improved. 3. Volume overload. Improved with ultrafiltration. 4. Anemia of chronic kidney disease. High ferritin noted. 5. Chronic kidney disease mineral bone disease maintained on PhosLo. 6. Questionable pneumonia maintained on antibiotics. Also concern for UTI. 7. Acute on chronic diastolic CHF and moderate pulmonary hypertension, moderate to severe mitral regurgitation, moderate aortic regurgitation, severe aortic stenosis. Plan: Repeat hemodialysis today. Another treatment tomorrow per his outpatient schedule. Add Aranesp. Maintain torsemide. Maintain renal diet. Add 1500 cc fluid restriction.
[2024-06-28 18:11] VITALS: RESP 18
[2024-06-28] MEDS: DOXAZOSIN 4 MG TAB PO SCH (18:13)
[2024-06-28] MEDS: cloNIDine HCL 0.1 MG TAB PO SCH (18:13)
--- NOTE | 2024-06-28 18:54 | P.PN ---
Subjective Progress Note Date: 06/28/24 Patient is an 83-year-old male with past medical history significant for end- stage renal disease (receives hemodialysis on a Tuesday, Tuesday, Tuesday basis), bladder cancer with resection and neobladder, intermittent straight caths, hypertension, hyperlipidemia, tobacco smoker. Patient was transferred from [facility] early this morning. Presented to the outside facility in respiratory distress, placed on BiPAP, and transferred to our facility. Chest x-ray consistent with pulmonary edema/fluid overload. Patient is currently being evaluated in the emergency department, room 5. He is not a very reliable historian. He is on 6 L/min nasal cannula. SpO2 is 97%. No respiratory distress. No accessory muscle use or conversational dyspnea. Patient denies missing any hemodialysis treatments. Started with a "cold" earlier in the week, Does report intermittent nonproductive cough. Denies any fevers, sputum production, chest pain, hemoptysis. Negative for COVID, influenza, RSV at outside facility. He was empirically placed on Zosyn and azithromycin in the ED. CBC: WC count 12.2, hemoglobin 9.3, hematocrit 28.8, platelet 185. CMP: Sodium 138, potassium 5.1, chloride 101, serum bicarb 27, BUN 61, creatinine 4.68, glucose 173. Urinalysis positive for leukocytes and bacteria. He denies any urinary complaint such as dysuria, hematuria. He does intermittently straight cath twice a day. Not anuric. He was given 80 mg of Lasix in the ED. Nephrology has been contacted, and patient will receive hemodialysis this morning. On 06/28/2024, patient is being seen for a follow-up. Patient is feeling well. He remains in 60s of oxygen by nasal cannula. Repeat chest x-ray was done today and the patient was found to have interstitial prominence/edema although improved compared to yesterday's chest x-rays. The patient has no chest pain. No anginal palpitation. Tolerated a total of 3.5 L of ultrafiltration yesterday. The plan is to repeat hemodialysis today. He is still on torsemide. His blood work today shows a WBC count of 7.4 with a hemoglobin 9.9 and a platelet count of 212. BUN is 45 with a creatinine of 3.4 and a sodium level of 133. He remains on empiric antibiotic coverage with Zosyn and Zithromax. No fever. No chills. No other complaints otherwise. Remains on [facility]. Objective - Vital Signs Vital signs: Vital Signs Temp 97.4 F L 06/28/24 08:17 Pulse 88 06/28/24 08:50 Resp 20 06/28/24 08:17 BP 147/80 06/28/24 08:17 Pulse Ox 95 06/28/24 08:17 FiO2 Intake & Output 06/27/24 06/28/24 06/28/24 18:59 06:59 18:59 Intake Total 500 118 Output Total 7500 Balance -7000 118 Weight 77.2 kg Intake: Oral 118 Hemodialysis 500 Output: Hemodialysis 4000 Hemodialysis Net Amount 3500 Other: Voiding Method Self-Catheterization Self-Catheterization # Voids 1 - Exam GENERAL EXAM: Alert, 83-year-old white male, on 6 L/min nasal cannula, no respiratory distress, no conversational dyspnea or accessory muscle use, comfortable in no apparent distress. HEAD: Normocephalic and atraumatic EYES: Normal reaction of pupils, equal size. NOSE: Clear with pink turbinates. THROAT: No erythema or exudates. NECK: No masses, no JVD. CHEST: No chest wall deformity. LUNGS: Equal air entry with bibasilar inspiratory crackles. On 6 L/min nasal cannula. SpO2 97%. CVS: S1 and S2 normal with no audible murmur, regular rhythm. No extra heart sounds ABDOMEN: No hepatosplenomegaly, active bowel sounds, no guarding or rigidity. SPINE: No scoliosis or deformity SKIN: No rashes CENTRAL NERVOUS SYSTEM: No focal deficits, tone is normal in all 4 extremities. EXTREMITIES: There is mild nonpitting bilateral lower extremity edema. No clubbing, or cyanosis. Peripheral pulses are intact. Left arm AV fistula with positive bruit and thrill - Labs CBC & Chem 7: 06/28/24 06:34 06/28/24 06:34 Labs: Abnormal Lab Results - Last 24 Hours (Table) 06/27/24 06/28/24 06/28/24 Range/Units 10:39 06:34 06:34 RBC 3.19 L (4.30-5.90) m/uL Hgb 9.9 L (13.0-17.5) gm/dL Hct 31.0 L (39.0-53.0) % Sodium 133 L (137-145) mmol/L Chloride 95 L (98-107) mmol/L Carbon Dioxide 33 H (22-30) mmol/L BUN 45 H (9-20) mg/dL Creatinine 3.42 H (0.66-1.25) mg/dL Iron 25 L (65-175) UG/DL TIBC 220 L (228-460) UG/DL % Saturation 11.36 L (15.00-50.00) Transferrin 157.0 L (204.0-354.0) mg/dL Ferritin 1582.0 H (22.0-322.0) ng/mL Total Protein 6.1 L (6.3-8.2) g/dL Assessment and Plan Assessment: Acute hypoxemic respiratory failure, secondary to fluid overload and pulmonary edema, Chest x-ray shows pulmonary vascular congestion, bibasilar pleural effusions with adjacent atelectasis. End-stage renal disease, undergoes hemodialysis treatments on Tuesday, Tuesday, Tuesday schedule. Denies missing any sessions of hemodialysis Anemia of chronic disease, secondary to above Possible UTI History of bladder cancer and neobladder, intermittently straight caths twice daily History of hypertension History of hyperlipidemia Former tobacco dependence Plan: Clinically improved Chest x-ray improved although there is still residual interstitial edema and pulm vessel congestion Remains in 60s of oxygen by nasal cannula Repeat hemodialysis today. Yesterday's hemodialysis ultrafiltration was done with a total of 3.5 L Intermittent straight cath as needed Nephrology has been contacted, plans for hemodialysis this morning Empirically covered on antibiotics. Check chest x-ray tomorrow Stop antibiotics if considerable improvement.
--- NOTE | 2024-06-28 20:47 | P.PN ---
Subjective Progress Note Date: 06/28/24 Patient is a 73-year-old male with a past medical history of ESRD on hemodialysis Tuesday and Tuesday left upper extremity AV fistula, history of bladder cancer/removal/neobladder, hypertension, hyperlipidemia and current everyday smoker. Patient also does straight catheterization. Patient was transferred from [facility]. Patient presents to ER with complaints of worsening shortness of breath/respiratory distress and was placed on BiPAP. Patient was given a dose of IV Lasix in the ER and antibiotics azithromycin. Eventually patient was transitioned to 6 L oxygen via nasal mansoor bhavna. Currently patient will need ER. Patient otherwise denied any recent hemodialysis. No complaints of fever or chills. No nausea vomiting abdominal pain or diarrhea. Chest x-ray showed bibasilar pleural effusions with adjacent atelectasis central underlying pneumonia not excluded. Mild to moderate pulmonary edema. EKG showed sinus rhythm with occasional ventricular premature complexes. Laboratory data showed WBC 12.2 hemoglobin 9.3 and platelets 185 sodium 138 potassium 5.1 chloride 101 bicarbonate 27 BUN 61 creatinine 4.68 and blood sugar 173. Laboratory data showed small blood large leukocyte esterase with RBCs 10 and WBC greater than 182 Influenza A B RSV and COVID-19 PCR not detected. 06/28/2024 Patient is resting in the bed. Awake alert and oriented x 3. Currently requiring 3 L oxygen via nasal cannula. Patient is scheduled for another hemodialysis today. Otherwise continue antibiotics and follow-up Zosyn and azithromycin. Chest x-ray repeat showed similar interstitial prominence suggestive of pulmonary edema with cardiomegaly. 2D echocardiogram showed normal LV function. Moderate pulmonary hypertension and moderate to severe MR, severe aortic stenosis and moderate aortic regurgitation. Laboratory data showed WBC 7.4 hemoglobin 9.9 and platelets 212, sodium 133 potassium 4.7 chloride 95 bicarb is 33 BUN 45 creatinine 3.42 and procalcitonin level was 0.91. Pulmonary and nephrology is on board. Objective - Vital Signs Vital signs: Vital Signs Temp 98.0 F 06/28/24 20:14 Pulse 74 06/28/24 20:14 Resp 18 06/28/24 20:14 BP 136/64 06/28/24 20:14 Pulse Ox 96 06/28/24 15:06 FiO2 Intake & Output 06/28/24 06/28/24 06/29/24 06:59 18:59 06:59 Intake Total 1158 Output Total 4650 Balance -3492 Weight 77.2 kg Intake: Oral 658 Hemodialysis 500 Output: Urine 150 Hemodialysis 2500 Hemodialysis Net Amount 1999 Other: Voiding Method Self-Catheterization Self-Catheterization # Voids 1 - Exam PHYSICAL EXAMINATION: Patient is lying in the bed comfortably, no acute distress, awake alert and oriented.. HEENT: Normocephalic. Neck is supple. Pupils reactive. Nostrils clear. Oral cavity is moist. Neck reveals no JVD, carotid bruits, or thyromegaly. CHEST EXAMINATION: Trachea is central. Symmetrical expansion. Lung chase clear to auscultation and percussion. CARDIAC: Normal S1, S2 with no gallops. + murmurs ABDOMEN: Soft. Bowel sounds normal. No organomegaly. No abdominal bruits. Extremities: reveal no edema. Left arm AV fistula present. No clubbing or cyanosis Neurologically awake, alert, oriented x3 with well-coordinated movements. No focal deficits noted Skin: No rash or skin lesions. Psychiatric: Coperative. Nonsuicidal Musculoskeletal: No joint swelling or deformity. Normal range of motion. - Labs CBC & Chem 7: 06/28/24 06:34 06/28/24 06:34 Labs: Abnormal Lab Results - Last 24 Hours (Table) 06/28/24 06/28/24 Range/Units 06:34 06:34 RBC 3.19 L (4.30-5.90) m/uL Hgb 9.9 L (13.0-17.5) gm/dL Hct 31.0 L (39.0-53.0) % Sodium 133 L (137-145) mmol/L Chloride 95 L (98-107) mmol/L Carbon Dioxide 33 H (22-30) mmol/L BUN 45 H (9-20) mg/dL Creatinine 3.42 H (0.66-1.25) mg/dL Total Protein 6.1 L (6.3-8.2) g/dL Assessment and Plan Assessment: Acute hypoxic respiratory failure secondary to pulmonary edema and pneumonia ESRD on hemodialysis Tuesday left upper extremity AV fistula. Acute on chronic CHF with preserved EF Moderate to severe MR and severe aortic stenosis and moderate pulmonary hypertension. Possible urinary tract infection History of bladder cancer with surgery and neobladder. Anemia of chronic disease with hemoglobin 9.3 rule out iron deficiency. Hypertension Hyperlipidemia History of nephrolithiasis Currently everyday smoker Intermittent straight catheterization GI and DVT prophylaxis with PPI and heparin subcu Plan: Patient will be continued on oxygen via nasal cannula. Titrate down to room air. Currently on 3 L. Patient was given a dose of IV Lasix and nephrology was consulted for hemodialysis. Patient was dilated yesterday. Another plan of hemodialysis today. Patient will be continued on Zosyn and azithromycin. Procalcitonin level 0.91 Due to severe valvular abnormality, consult cardiology for evaluation. Continue with home medications. Discussed with the patient and his at bedside in detail. Prognosis guarded. Follow-up closely. Pulmonary and nephrology is on board. Time with Patient: Greater than 30
[2024-06-29] MEDS: cloNIDine HCL 0.1 MG TAB PO PRN (05:05)
--- NOTE | 2024-06-29 08:28 | XR ---
EXAMINATION TYPE: XR chest 1V DATE OF EXAM: 06/29/2024 6:50 AM COMPARISON: 06/28/2024 CLINICAL INDICATION: Male, 83 years old with history of Pulm edema, TECHNIQUE: Single frontal view of the chest is obtained. FINDINGS: Very venous congestion with scattered interstitial edema unchanged from prior study. Small left-sided effusion. The cardiac silhouette size is within normal limits. The osseous structures ar e intact. IMPRESSION: Mild CHF [facility], , 06/29/2024 8:26 AM
[2024-06-29 09:07] VITALS: TEMP 98
--- NOTE | 2024-06-29 11:38 | P.PN ---
Subjective Patient is seen in follow-up for end-stage renal disease. He is maintained on hemodialysis on Tuesday schedule. Received extra treatment of hemodialysis yesterday with 2 L ultrafiltration. Tolerating dialysis well currently. Feels well. Vital signs are stable. General: No acute distress. HEENT: Head exam is unremarkable. On nasal cannula. LUNGS: No audible rhonchi or wheezes. HEART: Rate and Rhythm are regular. ABDOMEN: Nontender. EXTREMITITES: No edema. Objective - Vital Signs Vital signs: Vital Signs Temp 98 F 06/29/24 08:00 Pulse 56 L 06/29/24 11:15 Resp 18 06/29/24 11:16 BP 134/71 06/29/24 11:15 Pulse Ox 96 06/29/24 11:15 FiO2 Intake & Output 06/28/24 06/29/24 06/29/24 18:59 06:59 18:59 Intake Total 1158 Output Total 4650 0 Balance -3492 0 Weight 68.5 kg Intake: Oral 658 Hemodialysis 500 Output: Urine 150 0 Hemodialysis 2500 Hemodialysis Net Amount 2000 Other: Voiding Method Self-Catheterization Self-Catheterization Self-Catheterization # Voids 0 - Labs CBC & Chem 7: 06/28/24 06:34 06/28/24 06:34 Assessment and Plan Plan: Assessment: 1. End-stage renal disease maintained on hemodialysis on Tuesday schedule via left upper extremity AV fistula. 2. Acute hypoxic respiratory failure. Improved. 3. Volume overload. Improved with ultrafiltration. 4. Anemia of chronic kidney disease. High ferritin noted. On Aranesp. 5. Chronic kidney disease mineral bone disease maintained on PhosLo. 6. Questionable pneumonia maintained on antibiotics. Also concern for UTI. 7. Acute on chronic diastolic CHF and moderate pulmonary hypertension, moderate to severe mitral regurgitation, moderate aortic regurgitation, severe aortic stenosis. Plan: Currently seen while undergoing hemodialysis. Maintain torsemide. Maintain renal diet. Maintain 1500 cc fluid restriction. Potential discharge after dialysis today.
--- NOTE | 2024-06-29 12:15 | P.CRDCN ---
History of Present Illness Consult date: 06/29/24 Reason for Consult (text): Severe History of present illness: This is an 83-year-old male patient of Dr. Ana Kim with past medical history of moderate aortic stenosis and regurgitation, hypertension, dyslipidemia, end- stage renal disease on hemodialysis, chronic diastolic heart failure. We have been asked to evaluate the patient for severe aortic stenosis. Patient states that he presented to the hospital on 06/27 due to shortness of breath that been going on for a week and worsening. He denies having any chest pain. He states he had a little bit of lower extremity edema. He does complain of a cough. No fever or chills. Regarding dialysis, he has been on this for 3 years. He states he does make some minimal amount of urine and he does self cath. Patient was last seen in the office on 06/19/2024. Patient had fairly recent history of COVID infection and was hospitalized with heart failure and apparently underwent cardiac catheterization and echocardiogram at [facility]. Records from [facility] were requested and patient is to follow-up in the office in 4 months. Blood pressure 134/71, heart rate 56, pulse ox 96% on 3 L nasal cannula. Patient is undergoing hemodialysis this morning. -EKG: Sinus rhythm, nonspecific T wave abnormalities -Chest x-ray: Performed on 06/29: Mild CHF -Laboratory studies: WBC 12.2 is now 7.4, hemoglobin 9.9. Sodium 133, potassium 4.7, BUN 45 creatinine 3.42. Procalcitonin 0.91. Urinalysis large amount of leukoesterase, WBCs greater than 182. Influenza A, influenza B, RSV, COVID-19 not detected. -Echocardiogram performed 06/27/2024 revealed normal LV function, moderate pulmonary hypertension, moderate to severe mitral regurgitation, severe aortic stenosis, moderate aortic regurgitation. -Home cardiac medications: Atorvastatin 40 mg at bedtime, Catapres 0.3 mg twice daily, Plavix 75 mg daily, Cardura 4 mg daily, Lasix 40 mg twice daily, losartan 50 mg daily, omega-3 daily - Review Of Systems: At the time of my exam: CONSTITUTIONAL: Denies fever or chills. HEENT: Denies blurred vision, vision changes, or eye pain. Denies hemoptysis CARDIOVASCULAR: Denies chest pain. Denies orthopnea. Denies PND. Denies palpitations RESPIRATORY: Denies shortness of breath. GASTROINTESTINAL: Denies abdominal pain. Denies nausea or vomiting. HEMATOLOGIC: Denies bleeding disorders. GENITOURINARY: Denies any blood in urine. SKIN: Denies puritis. Denies rash. Physical examination: Gen: This is a 83-year-old male in no acute distress. VS: reviewed HEENT: Head is atraumatic, normocephalic. Pupils equal, round. Sclerae is anicteric. NECK: Supple. No JVD. LUNGS: Clear to auscultation. No wheezes or rhonchi. No intercostal retractions. HEART: Regular rate and rhythm. 3/6 systolic ejection murmur. ABDOMEN: Soft No tenderness. EXTREMITIES: No pedal edema. No calf tenderness. NEUROLOGICAL: Patient is awake, alert and oriented x3. Assessment: Dyspnea secondary to combination of diastolic heart failure, severe , anemia Acute on chronic diastolic heart failure secondary to Severe symptomatic aortic stenosis and aortic regurgitation Hypertension Dyslipidemia End-stage renal disease on hemodialysis Chronic anemia of chronic disease Plan: Resume patient's home cardiac medications Patient will need follow-up in the office with Dr. Kim at the time of discharge for evaluation of aortic stenosis and appropriateness for TAVR versus SAVR. Further recommendations to follow based upon clinical course Thank you kindly for this consultation. Nurse practitioner note has been reviewed, I agree with documented findings and plan of care. Patient was seen and examined. Past Medical History Past Medical History: Cancer, Dialysis, Renal Disease Additional Past Medical History / Comment(s): Bladder cancer, kidney stones History of Any Multi-Drug Resistant Organisms: None Reported Additional Past Surgical History / Comment(s): Hip surgery, hernia repair, bladder removal/neobladder, left arm fistula, excision of uvula Past Psychological History: No Psychological Hx Reported Smoking Status: Current every day smoker Medications and Allergies Home Medications Medication Instructions Recorded Confirmed Type Acetaminophen Tab [Tylenol] 500 mg PO HS 05/14/24 06/27/24 History Ascorbic Acid [Vitamin C] 1,000 mg PO DAILY 05/14/24 06/27/24 History Atorvastatin [Lipitor] 40 mg PO HS 05/14/24 06/27/24 History Calcium Acetate [PhosLo] 1,334 mg PO BID PRN 05/14/24 06/27/24 History Calcium Acetate [PhosLo] 2,001 mg PO TID-W/MEALS 05/14/24 06/27/24 History Cholecalciferol (Vitamin D3) 50 mcg PO DAILY 05/14/24 06/27/24 History [Vitamin D3 (50 Mcg = 2000 Iu)] Doxazosin [Cardura] 4 mg PO DAILY 05/14/24 06/27/24 History Furosemide [Lasix] 40 mg PO BID 05/14/24 06/27/24 History Losartan Potassium 50 mg PO DAILY 05/14/24 06/27/24 History [place]-3/Dha/Epa/Fish Oil [Fish Oil 1 cap PO DAILY 05/14/24 06/27/24 History 1,000 mg Softgel] cloNIDine HCL [Catapres] 0.3 mg PO BID 05/14/24 06/27/24 History Pantoprazole [Protonix] 40 mg PO DAILY #30 tab 05/16/24 06/27/24 Rx Clopidogrel [Plavix] 75 mg PO DAILY 06/27/24 06/27/24 History Allergies Allergy/AdvReac Type Severity Reaction Status Date / Time cefazolin [From Kefzol] Allergy Rash/Hives Verified 06/27/24 08:11 hydralazine Allergy Rash/Hives Verified 06/27/24 08:11 Physical Exam Vitals: Vital Signs Temp Pulse Pulse Resp BP Pulse Ox 06/29/24 06:02 148/63 06/29/24 05:00 97.9 F 71 18 167/66 93 L 06/28/24 23:52 98.2 F 67 18 123/66 99 06/28/24 20:14 98.0 F 74 18 136/64 95 06/28/24 18:50 174/66 06/28/24 18:10 98 F 87 18 181/81 06/28/24 17:57 190/90 06/28/24 15:06 98.3 F 64 20 158/71 96 06/28/24 14:02 83 06/28/24 12:35 84 06/28/24 12:26 86 06/28/24 11:54 97.6 F 83 20 141/71 99 Intake and Output 06/28/24 06/29/24 06/29/24 22:59 06:59 14:59 Intake Total 500 Output Total 4500 0 Balance -4000 0 Intake: Hemodialysis 500 Output: Urine 0 0 Hemodialysis 2500 Hemodialysis Net Amount 2000 Other: Voiding Method Self-Catheterization Self-Catheterization # Voids 0 0 Weight 68.5 kg Results 06/28/24 06:34 06/28/24 06:34 Current Medications Generic Name Dose Route Start Last Admin Trade Name Freq PRN Reason Stop Dose Admin Acetaminophen 650 mg 06/27/24 03:37 Acetaminophen Tab 325 Mg Tab PO Q6HR PRN Mild Pain or Fever > 100.5 Albuterol/Ipratropium 3 ml 06/27/24 20:00 06/28/24 21:42 Ipratropium-Albuterol 3 Ml Neb INHALATION Not Given RT-QID PRASANTH Atorvastatin Calcium 40 mg 06/27/24 21:00 06/28/24 21:16 Atorvastatin 40 Mg Tab PO 40 mg HS PRASANTH Administration Calcium Acetate 2,001 mg 06/27/24 12:30 06/29/24 06:01 Calcium Acetate 667 Mg Tab PO 2,001 mg TID-W/MEALS PRASANTH Administration Clonidine 0.3 mg 06/28/24 21:00 06/28/24 18:13 Clonidine Hcl 0.1 Mg Tab PO 0.3 mg BID PRASANTH Administration Clonidine 0.1 mg 06/28/24 18:08 06/29/24 05:05 Clonidine Hcl 0.1 Mg Tab PO 0.1 mg TID PRN Administration Blood Pressure - High Clopidogrel Bisulfate 75 mg 06/27/24 10:00 06/28/24 08:23 Clopidogrel 75 Mg Tab PO 75 mg DAILY PRASANTH Administration Doxazosin Mesylate 4 mg 06/28/24 18:15 06/28/24 18:13 Doxazosin 4 Mg Tab PO 4 mg DAILY PRASANTH Administration Heparin Sodium (Porcine) 5,000 unit 06/27/24 03:45 06/28/24 23:14 Heparin Sodium,Porcine 5,000 Unit/Ml 1 Ml Vial SQ 5,000 unit Q8HR PRASANTH Administration Piperacillin Sod/Tazobactam 100 mls @ 25 mls/hr 06/27/24 18:00 06/29/24 05:06 Sod 3.375 gm/ Sodium Chloride IVPB 25 mls/hr Q12H PRASANTH Administration Protocol Miscellaneous Information 1 each 06/27/24 02:43 Pneumonia Protocol Utilized 1 Each Misc PO ONCE PRN Per Protocol Naloxone HCl 0.2 mg 06/27/24 03:37 Naloxone 0.4 Mg/Ml 1 Ml Vial IV Q2M PRN Opioid Reversal Ondansetron HCl 4 mg 06/27/24 03:37 Ondansetron 4 Mg/2 Ml Vial IVP Q8HR PRN Nausea And Vomiting Pantoprazole Sodium 40 mg 06/27/24 07:30 06/29/24 05:05 Pantoprazole 40 Mg Tablet PO 40 mg [id number] PRASANTH Administration Torsemide 40 mg 06/28/24 09:00 06/28/24 08:23 Torsemide 20 Mg Tab PO 40 mg DAILY PRASANTH Administration Intake and Output 06/28/24 06/29/24 06/29/24 22:59 06:59 14:59 Intake Total 500 Output Total 4500 0 Balance -4000 0 Intake: Hemodialysis 500 Output: Urine 0 0 Hemodialysis 2500 Hemodialysis Net Amount 2000 Other: Voiding Method Self-Catheterization Self-Catheterization # Voids 0 0 Weight 68.5 kg 06/28/24 06:34 06/28/24 06:34
[2024-06-29 13:54] VITALS: BP 151/75; PULSE 81
--- NOTE | 2024-06-29 14:52 | P.PN ---
Subjective Progress Note Date: 06/29/24 Patient is an 83-year-old male with past medical history significant for end- stage renal disease (receives hemodialysis on a Tuesday, Tuesday, Tuesday basis), bladder cancer with resection and neobladder, intermittent straight caths, hypertension, hyperlipidemia, tobacco smoker. Patient was transferred from [facility] early this morning. Presented to the outside facility in respiratory distress, placed on BiPAP, and transferred to our facility. Chest x-ray consistent with pulmonary edema/fluid overload. Patient is currently being evaluated in the emergency department, room 5. He is not a very reliable historian. He is on 6 L/min nasal cannula. SpO2 is 97%. No respiratory distress. No accessory muscle use or conversational dyspnea. Patient denies missing any hemodialysis treatments. Started with a "cold" earlier in the week, Does report intermittent nonproductive cough. Denies any fevers, sputum production, chest pain, hemoptysis. Negative for COVID, influenza, RSV at outside facility. He was empirically placed on Zosyn and azithromycin in the ED. CBC: WC count 12.2, hemoglobin 9.3, hematocrit 28.8, platelet 185. CMP: Sodium 138, potassium 5.1, chloride 101, serum bicarb 27, BUN 61, creatinine 4.68, glucose 173. Urinalysis positive for leukocytes and bacteria. He denies any urinary complaint such as dysuria, hematuria. He does intermittently straight cath twice a day. Not anuric. He was given 80 mg of Lasix in the ED. Nephrology has been contacted, and patient will receive hemodialysis this morning. On 06/28/2024, patient is being seen for a follow-up. Patient is feeling well. He remains in 60s of oxygen by nasal cannula. Repeat chest x-ray was done today and the patient was found to have interstitial prominence/edema although improved compared to yesterday's chest x-rays. The patient has no chest pain. No anginal palpitation. Tolerated a total of 3.5 L of ultrafiltration yesterday. The plan is to repeat hemodialysis today. He is still on torsemide. His blood work today shows a WBC count of 7.4 with a hemoglobin 9.9 and a platelet count of 212. BUN is 45 with a creatinine of 3.4 and a sodium level of 133. He remains on empiric antibiotic coverage with Zosyn and Zithromax. No fever. No chills. No other complaints otherwise. [facility]. On 06/29/2024, the patient is undergoing another session of hemodialysis. He underwent hemodialysis yesterday and another session to be done with a total of 3.5 L of ultrafiltration. Repeat chest x-ray was done this morning and the patient was found to have some mild CHF with improvement in the above-mentioned pulm vessel congestion. The patient is not having any significant shortness of breath. As mentioned, the patient has end-stage renal disease and is currently on hemodialysis. He also has diastolic heart failure with severe aortic s tenosis and chronic anemia. Echocardiogram was done on 06/27/2024 and the patient was found to have normal LV, moderate pulm hypertension, moderate to severe mitral regurgitation and severe aortic stenosis. Nevertheless, the patient is stable. Oxygenation has improved and the patient is currently weaned down to 3 L and should be able to further wean down to room air oxygen. Cardiology has been consulted. Remains on IV Zosyn. Objective - Vital Signs Vital signs: Vital Signs Temp 98 F 06/29/24 08:00 Pulse 56 L 06/29/24 11:15 Resp 18 06/29/24 11:16 BP 134/71 06/29/24 11:15 Pulse Ox 96 06/29/24 11:15 FiO2 Intake & Output 06/28/24 06/29/24 06/29/24 18:59 06:59 18:59 Intake Total 1158 Output Total 4650 0 Balance -3492 0 Weight 68.5 kg Intake: Oral 658 Hemodialysis 500 Output: Urine 150 0 Hemodialysis 2500 Hemodialysis Net Amount 2000 Other: Voiding Method Self-Catheterization Self-Catheterization Self-Catheterization # Voids 0 - Exam GENERAL EXAM: Alert, 83-year-old white male, on 3 L/min nasal cannula, no respiratory distress, no conversational dyspnea or accessory muscle use, comfortable in no apparent distress. HEAD: Normocephalic and atraumatic EYES: Normal reaction of pupils, equal size. NOSE: Clear with pink turbinates. THROAT: No erythema or exudates. NECK: No masses, no JVD. CHEST: No chest wall deformity. LUNGS: Equal air entry with bibasilar inspiratory crackles. On 6 L/min nasal cannula. SpO2 97%. CVS: S1 and S2 normal with no audible murmur, regular rhythm. No extra heart sounds systolic ejection murmur consistent with aortic stenosis ABDOMEN: No hepatosplenomegaly, active bowel sounds, no guarding or rigidity. SPINE: No scoliosis or deformity SKIN: No rashes CENTRAL NERVOUS SYSTEM: No focal deficits, tone is normal in all 4 extremities. EXTREMITIES: There is mild nonpitting bilateral lower extremity edema. No clubbing, or cyanosis. Peripheral pulses are intact. Left arm AV fistula with positive bruit and thrill - Labs CBC & Chem 7: 06/28/24 06:34 06/28/24 06:34 Assessment and Plan Assessment: Acute hypoxemic respiratory failure, secondary to fluid overload and pulmonary edema improving on today's chest x-ray and the patient's oxygenation is improved, currently on 3 days of oxygen by nasal cannula. Another session of hemodialysis to be done. End-stage renal disease, undergoes hemodialysis treatments on Tuesday, Tuesday, Tuesday schedule. Denies missing any sessions of hemodialysis, the patient has been undergoing daily dialysis since his admission. Another session of hemodialysis to be done today. Total of 3.5 L of ultrafiltration Severe aortic stenosis Moderate mitral regurgitation Preserved LV function with moderate degree of group 2 pulmonary hypertension Anemia of chronic disease, secondary to above Possible UTI History of bladder cancer and neobladder, intermittently straight caths twice daily History of hypertension History of hyperlipidemia Former tobacco dependence Plan: Clinically improved, currently on 3 L Assess oxygenation on room air oxygen. The patient should be able to wean off the oxygen as the patient is undergoing daily hemodialysis with ultrafiltration. Chest x-ray improved although there is still residual interstitial edema and pulm vessel congestion, follow-up chest x-ray from today was noted Repeat hemodialysis today. Yesterday's hemodialysis ultrafiltration was done with a total of 3.5 L May discontinue IV Zosyn Cardiology evaluation regarding the severe aortic stenosis and moderate to severe mitral regurgitation Intermittent straight cath as needed No active respiratory issues for now. Respiratory distress is improved. Oxygenation is also improving. Follow-up with cardiology and nephrology.
--- NOTE | 2024-06-29 15:16 | CDI ---
Documentation Clarification Form Date: 06/29/2024 02:54:59 PM From: Nai Cisneros RN, CCDS Phone: [phone] Admit Date: 06/27/2024 03:37:00 AM Patient Name: Shawn Luque Visit Number: [id number] Discharge Date: ATTENTION: The Clinical Documentation Specialists (CDI) and [facility] Coding Staff appreciate your assistance in clarifying documentation. Please respond to the clarification below the line at the bottom and electronically sign. The CDI & [facility] Coding staff will review the response and follow-up if needed. Please note: Queries are made part of the Legal Health Record. If you have any questions, please contact the author of this message via ITS. Doctor. Rigoberto Lange Possible UTI is documented in the H/P and ongoing progress notes the patient intermittent straight catheterization. Additional clarification regarding the etiology of the UTI is requested. History/Risk Factors: Cancer, Dialysis, Renal Disease, Bladder cancer Current Smoker Clinical Indicators: 83-year-old male who presents to ED transferred from [facility] for shortness of breath Urinalysis: Leukocyte Esterase Large WBC >182, urine Bacteria Moderate Lab results: WBC 12.2 HGB 9.3, Neutrophils 11.5, BUN 61, CR 4.68 Procalcitonin 0.91 Treatment: Zosyn 3.375 GM IVPB Q 12 HRS Azithromycin 500 mg IVPB X2 Bags Monitor I/O Please clarify the etiology of the UTI, if known: [ x ] Intermittent straight catheterization [ ] UTI not related to intermittent straight catheterization [ ] Other condition, please specify [ ] Unable to determine (Template Last Revised: September 2020) MTDD
[2024-06-29 15:48] LABS: African American GFR (CKD) 35 (>60 ml/min/1.73 sqM); Anion Gap 6 mmol/L; Blood Urea Nitrogen 17 mg/dL (9-20); Carbon Dioxide 32 mmol/L (22-30); Chloride 93 mmol/L (98-107); Glucose 135 mg/dL (74-99); Non-African American GFR(CKD) 30 (>60 ml/min/1.73 sqM); Potassium 3.6 mmol/L (3.5-5.1); Sodium 131 mmol/L (137-145)
== END 2024-06-29 15:18 | disposition home or self-care (01) | DRG 291 ==
LOC: EC 02:32 → 3SCARD 03:37
PROVIDERS: ADMIT Hospitalist; ATTEND Hospitalist
PROC: 5A1D70Z Performance of Urinary Filtration, Intermittent, Less than 6 Hours Per Day (ICD-10-PCS; principal; 2024-06-27)
DX: I13.2 Hypertensive heart and chronic kidney disease with heart failure and with stage 5 chronic kidney disease, or end stage renal disease (principal); I50.33 Acute on chronic diastolic (congestive) heart failure; J96.01 Acute respiratory failure with hypoxia; N18.6 End stage renal disease; T83.518A Infection and inflammatory reaction due to other urinary catheter, initial encounter; I27.22 Pulmonary hypertension due to left heart disease; D63.1 Anemia in chronic kidney disease; Z90.6 Acquired absence of other parts of urinary tract; Z66 Do not resuscitate; Z99.2 Dependence on renal dialysis; I08.0 Rheumatic disorders of both mitral and aortic valves; E78.5 Hyperlipidemia, unspecified; M89.8X9 Other specified disorders of bone, unspecified site; Y73.8 Miscellaneous gastroenterology and urology devices associated with adverse incidents, not elsewhere classified; Z85.51 Personal history of malignant neoplasm of bladder; Z87.891 Personal history of nicotine dependence; Z79.899 Other long term (current) drug therapy; Z79.1 Long term (current) use of non-steroidal anti-inflammatories (NSAID); Z79.02 Long term (current) use of antithrombotics/antiplatelets; Z86.16 Personal history of COVID-19
CPT/HCPCS: 36415; 71045; 80048; 80053; 81001; 82728; 83540; 83550; 83605; 84145; 85025; 85610; 85730; 87636; 90935; 93005; 93306; 94640; 94760; 96365; 96366; 96367; 96372; 96375; 99291

== ENCOUNTER 2024-08-02 09:07 | Day surgery (SDC) | payer MEDICARE, BC ==
[2024-08-01 10:04] VITALS: BMI 21.2
[~2024-08-02 09:07] MED LIST: ALPRAZolam 0.25 MG TAB PO PRN; ALPRAZolam 0.5 MG TAB PO PRN; BENZOCAINE SPRAY 1 CAN TOPICAL PRN; HEPARIN SODIUM,PORCINE (1 ML) 2,500 UNIT in SODIUM CHLORIDE 0.9% 250 ML IRRIGATION PRN; HEPARIN SODIUM,PORCINE 10,000 UNIT in SODIUM CHLORIDE 0.9% 1,000 ML IRRIGATION PRN; MIDAZOLAM 2 MG/2 ML VIAL IV PRN; NITROGLYCERIN SL TABS 0.4 MG TAB SUBLINGUAL PRN; fentaNYL (PF) 50 MCG/ML 5 ML AMP IVP PRN
[2024-08-02] MEDS: IV FLUID CONTINUATION 1,000 ML IV ONE (10:30)
[2024-08-02 10:39] LABS: HGB 10.9 gm/dL (13.0-17.5); MCH 31.9 pg (25.0-35.0); MCV 96.5 fL (80.0-100.0); Mean Platelet Volume 9.7; Platelet Count 122 k/uL (150-450); RBC 3.42 m/uL (4.30-5.90); RDW 15.8 % (11.5-15.5); WBC 5.2 k/uL (3.8-10.6)
[2024-08-02 10:51] LABS: African American GFR (CKD) 16 (>60 ml/min/1.73 sqM); Anion Gap 11 mmol/L; Blood Urea Nitrogen 46 mg/dL (9-20); Carbon Dioxide 28 mmol/L (22-30); Chloride 101 mmol/L (98-107); Glucose 99 mg/dL (74-99); Non-African American GFR(CKD) 13 (>60 ml/min/1.73 sqM); Potassium 4.2 mmol/L (3.5-5.1); Sodium 140 mmol/L (137-145)
[2024-08-02] MEDS: BENZOCAINE SPRAY 1 EACH MM ONE (11:10)
[2024-08-02] MEDS: MIDAZOLAM 2 MG/2 ML VIAL IVP ONE (11:11)
[2024-08-02] MEDS: SODIUM CHLORIDE 0.9% 1,000 ML IV ONE (11:11)
[2024-08-02] MEDS: LIDOCAINE 1% INJ 10MG/ML (20 ML MDV) SQ ONE ×2 (11:29)
[2024-08-02] MEDS: HEPARIN SODIUM,PORCINE 10,000 UNIT in SODIUM CHLORIDE 0.9% 1,000 ML IRRIGATION ONE (11:31)
[2024-08-02] MEDS: HEPARIN SODIUM,PORCINE (1 ML) 2,500 UNIT in SODIUM CHLORIDE 0.9% 250 ML IRRIGATION ONE (11:32)
[2024-08-02] MEDS: IOPAMIDOL-370 100ML BTL INJ ONE (11:50)
--- NOTE | 2024-08-02 12:26 | PCN ---
PROCEDURE NOTE PROCEDURE: Transesophageal echo. INDICATION: Aortic stenosis. PROCEDURE NOTE: After obtaining informed consent, transesophageal echocardiogram was performed in left lateral position using an Omniplane probe. Local and IV sedation were obtained using Xylocaine spray and 2 mg of Versed. The patient tolerated the procedure well without any obvious immediate complications. Total sedation time was 10 minutes. FINDINGS: 1. Aortic valve is a 3-leaflet valve, appears heavily calcified with severe restriction in leaflet mobility. By planimetry, the valve area is 0.6 squared cm with moderate to severe aortic regurgitation. Mitral valve shows mitral annular calcification with moderate mitral regurgitation. There is mild tricuspid regurgitation noted. There is no evidence of fnbq-gr-pjoiq shunt by color-flow Doppler or kgswf-nv-vxfy shunt by agitated saline contrast study. There is biatrial enlargement. 2. Left ventricle has normal size and systolic function. Aorta shows moderate atherosclerotic changes with normal size aortic root. CONCLUSION: Severe aortic stenosis with moderate to severe aortic regurgitation. PLAN: I am going to perform cardiac catheterization and refer him for TAVR. MMODL / IJN: [id number] /
[2024-08-02] MEDS ORDERED: CALCIUM ACETATE 667 MG TAB PO PRN (13:49)
[2024-08-02] MEDS: ASPIRIN 325 MG TAB PO STA (17:03)
[2024-08-02] MEDS: ATORVASTATIN 80 MG TAB PO STA (17:06)
[2024-08-02] MEDS: CALCIUM ACETATE 667 MG TAB PO SCH (20:55)
[2024-08-02] MEDS: cloNIDine HCL 0.1 MG TAB PO SCH (20:55)
[2024-08-02] MEDS: ACETAMINOPHEN TAB 500 MG TAB PO SCH (20:56)
--- NOTE | 2024-08-02 23:02 | CC ---
CARDIAC CATHETERIZATION REPORT INDICATION: Aortic stenosis. PROCEDURE NOTE: After obtaining informed consent, left heart catheterization and coronary angiogram were performed via the right femoral artery using standard Almas catheters. The patient tolerated the procedure well, received moderate conscious sedation. Total sedation time was 18 minutes. I initially attempted right radial artery access, but was unsuccessful. The patient received sedation earlier for the CHIN and was moving on the table. Hence, we proceeded with femoral arterial axis and performed a cardiac catheterization with the femoral artery. There was a small hematoma at the end of the procedure and we decided to do manual hemostasis. FINDINGS: 1. HEMODYNAMICS: Central aortic pressure is 140/70 mm. 2. LEFT VENTRICULOGRAM: Left ventriculogram is not performed. 3. ANGIOGRAPHIC DATA: a.Right coronary artery: Right coronary artery is a large dominant vessel and is free of stenosis. b.Left main coronary artery is a normal-sized vessel and is free of significant disease, divides into left anterior descending coronary artery and circumflex coronary artery. c.LAD and its branches, circumflex coronary artery and its branches are free of stenosis. CONCLUSIONS: Normal coronary arteries. PLAN: I will refer the patient to TAVR. We are going to do bedrest for 6 hours and I might keep him here overnight and let him go home in the morning given the small groin hematoma and the fact that the [place] We will probably discharge him home in the morning. MMODL / IJN: [id number] /
[2024-08-03 08:08] VITALS: BP 177/55; PULSE 76; RESP 16; TEMP 98.3
[2024-08-03] MEDS ORDERED: LOSARTAN 50 MG TAB PO SCH ×2 (08:15→09:00)
[2024-08-03] MEDS: ASCORBIC ACID 500 MG TAB PO SCH (08:29)
[2024-08-03] MEDS: ATORVASTATIN 40 MG TAB PO SCH (08:30)
[2024-08-03] MEDS: CHOLECALCIFEROL 25 MCG (1000 IU) TABLET PO SCH (08:30)
[2024-08-03] MEDS: CLOPIDOGREL 75 MG TAB PO SCH (08:30)
[2024-08-03] MEDS: DOXAZOSIN 4 MG TAB PO SCH (08:30)
[2024-08-03] MEDS: LOSARTAN 50 MG TAB PO SCH (08:30)
[2024-08-03] MEDS: TORSEMIDE 20 MG TAB PO SCH (08:31)
--- NOTE | 2024-08-03 11:02 | P.DS ---
Providers Attending physician: Ovi Kim Primary care physician: [facility] Course: This is an 83-year-old male who underwent CHIN and cardiac catheterization yesterday with Dr. Kim. Cardiac catheterization revealed normal coronary arteries. CHIN revealed severe aortic stenosis with moderate to severe aortic regurgitation. Patient is doing well post procedure with no immediate complications noted. Patient without complaints of chest pain or shortness of breath. Patient's blood pressure has been elevated and his losartan was increased from 50 to 100 mg daily. Right radial and femoral cath site are soft with no hematoma noted. The patient was deemed stable for discharge home today. Patient will follow-up outpatient with Dr. Kim and also with the valve clinic for evaluation of TAVR Discharge diagnosis Severe aortic stenosis with moderate to severe aortic regurgitation Normal coronary arteries Hypertension Nurse practitioner note has been reviewed by physician. Signing provider agrees with the documented findings, assessment, and plan of care documented by VESSEL SCRAPPER HELPER as a scribe. Patient Condition at Discharge: Fair Plan - Discharge Summary Discharge Rx Participant: No New Discharge Prescriptions: New Losartan [Cozaar] 100 mg PO DAILY #60 tab Discontinued Losartan Potassium 50 mg PO DAILY No Action Acetaminophen Tab [Tylenol] 500 mg PO HS Ascorbic Acid [Vitamin C] 1,000 mg PO DAILY Atorvastatin [Lipitor] 40 mg PO DAILY Calcium Acetate [PhosLo] 1,334 mg PO BID PRN PRN Reason: snacks Calcium Acetate [PhosLo] 2,001 mg PO TID-W/MEALS cloNIDine HCL [Catapres] 0.3 mg PO BID Doxazosin [Cardura] 4 mg PO DAILY Torsemide [Demadex] 20 mg PO BID Cholecalciferol (Vitamin D3) [Vitamin D3 (50 Mcg = 2000 Iu)] 50 mcg PO DAILY Clopidogrel [Plavix] 75 mg PO DAILY Discharge Medication List Acetaminophen Tab [Tylenol] 500 mg PO HS 05/14/24 [History] Ascorbic Acid [Vitamin C] 1,000 mg PO DAILY 05/14/24 [History] Atorvastatin [Lipitor] 40 mg PO DAILY 05/14/24 [History] Calcium Acetate [PhosLo] 1,334 mg PO BID PRN 05/14/24 [History] Calcium Acetate [PhosLo] 2,001 mg PO TID-W/MEALS 05/14/24 [History] Cholecalciferol (Vitamin D3) [Vitamin D3 (50 Mcg = 2000 Iu)] 50 mcg PO DAILY 05/14/24 [History] Doxazosin [Cardura] 4 mg PO DAILY 05/14/24 [History] cloNIDine HCL [Catapres] 0.3 mg PO BID 05/14/24 [History] Clopidogrel [Plavix] 75 mg PO DAILY 06/27/24 [History] Torsemide [Demadex] 20 mg PO BID 08/01/24 [History] Losartan [Cozaar] 100 mg PO DAILY #60 tab 08/03/24 [Rx] Follow up Appointment(s)/Referral(s): Ovi Kim MD [STAFF PHYSICIAN] - 08/17/24 3:45 pm () Patient Instructions/Handouts: Heart Catheterization (DC) Discharge Disposition: HOME SELF-CARE
== END 2024-08-03 09:00 | disposition home or self-care (01) ==
LOC: CATHCVL 09:07 → 6NMEDSUR 11:46 → CATHCVL 08-03 09:00
PROVIDERS: ATTEND Internal Medicine Cardiovascular Disease
DX: I35.2 Nonrheumatic aortic (valve) stenosis with insufficiency (principal); I08.1 Rheumatic disorders of both mitral and tricuspid valves; I13.2 Hypertensive heart and chronic kidney disease with heart failure and with stage 5 chronic kidney disease, or end stage renal disease; I50.9 Heart failure, unspecified; N18.6 End stage renal disease; Z99.2 Dependence on renal dialysis; E78.2 Mixed hyperlipidemia; Z72.0 Tobacco use; Z79.899 Other long term (current) drug therapy; Z85.51 Personal history of malignant neoplasm of bladder; Z88.8 Allergy status to other drugs, medicaments and biological substances
CPT/HCPCS: 93312; 93320; 93325; 93454; 80048; 85027; C1769 ×2; C1894 ×2; J2250; J1644 ×2; J2003; Q9967

== ENCOUNTER 2024-10-09 06:31 | Outpatient (CLI) | payer MEDICARE, BC ==
[2024-10-09 07:40] VITALS: BP 180/80; RESP 16
--- NOTE | 2024-10-09 12:36 | CT ---
EXAMINATION TYPE: CT TAVR Planning DATE OF EXAM: 10/09/2024 COMPARISON: Plain film CLINICAL INDICATION: Male, 84 years old with history of I35.1 NONRHEUMATIC AORTIC (VALVE) INSUFFICIEN CY; NONHEUMATIC AORTIC (VALVE) INSUFFICIENCY TECHNIQUE: CT angiogram scan of the Neck, chest, abdomen and pelvis is performed with IV contrast; Helical imagi ng obtained through the chest, abdomen and pelvis during arterial phase dynamic administration of rad iographic contrast intravenously. MIP imaging performed on a [employer] work station and submitted for r eview. CONTRAST: 150 ML mL of Isovue 370. CT DLP: 2018.60 mGycm, Automated exposure control for dose reduction was used. FINDINGS: See report from [email or web address] regarding preprocedural planning HEART AND PERICARDIUM: The heart is mildly enlarged. There is no pericardial effusion. Mild coronary artery calcifications present. AV Calcification Severity: Moderate/Severe Mild to moderate opacifications of the mitral valve. ARTERIAL VASCULATURE: The aortic arch and thoracic aorta demonstrate a normal course and caliber. The pulmonary outflow tra ct appears within normal limits for size. The thoracic aorta is normal in course and caliber. There is no evidence of aortic dissection, aneurysm or acute aortic injury. Great arch vessels patent and n ormal in course and caliber. Moderate atherosclerotic changes of the thoracic aorta. The abdominal aorta demonstrates focal aneurysmal dilation up to 29 mm just before the bifurcation. PULMONARY ARTERIAL VASCULATURE: Normal caliber., No evidence for central filling defect. NECK AND THYROID: No significant findings. The carotid bifurcations are patent. Atherosclerosis at th e left carotid bifurcation without significant stenosis. Visualized arterial vasculature and skull ba se is grossly unremarkable without evidence for high-grade stenosis or aneurysm dilation. Intracrania l atherosclerosis of the arterial vasculature. CHEST: LUNGS: Subsegmental atelectasis is present in the lung bases. Emphysematous changes are present. No LARGE AIRWAYS: Central airways are patent. PLEURAL: No pleural effusion or thickening. No pneumothorax. MEDIASTINUM AND RONDA: No mediastinal or hilar lymphadenopathy or soft tissue mass. SOFT TISSUES/LYMPH NODES: Unremarkable.Normal. MUSCULOSKELETAL: No acute osseous abnormalities ABDOMEN/PELVIS: Please note arterial phase of the imaging limits detailed evaluation of the solid abdominal organs. ABDOMEN LIVER: Unremarkable GALLBLADDER AND BILE DUCTS: Unremarkable. PANCREAS: Unremarkable. SPLEEN: Unremarkable. ADRENAL GLANDS: Unremarkable. KIDNEYS AND URETERS: Atrophic kidneys bilaterally.r indeterminate left renal lesion measuring 25 mm a nd 13 Hounsfield units. Indeterminate right renal lesion measuring 14 mm and 70 Hounsfield units. No evidence of hydronephrosis or renal calculus. The ureters are unremarkable. PELVIS BLADDER: Displaced rightward. REPRODUCTIVE: Unremarkable. ABDOMEN & PELVIS STOMACH AND BOWEL: No evidence of bowel obstruction. PERITONEUM/RETROPERITONEUM: No evidence of pneumoperitoneum or free fluid. VASCULATURE: No evidence of aortic aneurysm. MUSCULOSKELETAL: No acute osseous abnormalities, right hip arthroplasty hardware appears intact. Dege neration changes of the iliac bones bilaterally right greater than left. LYMPH NODES: No gross evidence for lymphadenopathy. SOFT TISSUE/ABDOMINAL WALL: Surgical clips in the abdomen. Left inguinal hernia containing loops of c olon. Other Lines/Tubes/Devices/Hardware: None IMPRESSION: 1. No acute process. 2. Moderate/Severe calcifications of the aortic valve. 3. Bilateral indeterminate renal lesions. Further evaluation with renal mass protocol MRI recommende d. 4. The abdominal aorta demonstrates focal aneurysmal dilation up to 29 mm just before the bifurcatio n. 5. Left inguinal hernia containing loops of colon. 6. Moderate to severe atherosclerosis of the arterial vasculature. 7. See report from [employer] regarding preprocedural planning 8. Atherosclerosis of the left carotid bifurcation has significant stenosis. 9. Mild to moderate mitral valve calcifications. 10. Atrophic bilateral kidneys with scattered cysts. 11. Mild emphysema. [facility], , 10/09/2024 12:00 PM
[2024-10-09 13:46] VITALS: PULSE 64
== END 2024-10-09 13:20 | disposition home or self-care (01) ==
LOC: LABWHC1 06:31
PROVIDERS: ATTEND Thoracic Surgery (Cardiothoracic Vascular Surgery)
DX: Z01.818 Encounter for other preprocedural examination (principal); I35.0 Nonrheumatic aortic (valve) stenosis; E87.8 Other disorders of electrolyte and fluid balance, not elsewhere classified; E11.9 Type 2 diabetes mellitus without complications; E78.5 Hyperlipidemia, unspecified; E07.9 Disorder of thyroid, unspecified; N28.9 Disorder of kidney and ureter, unspecified; R35.0 Frequency of micturition; R55 Syncope and collapse; R58 Hemorrhage, not elsewhere classified; Z79.899 Other long term (current) drug therapy; Z79.01 Long term (current) use of anticoagulants
CPT/HCPCS: 94150; 71275; 74174; Q9967

== ENCOUNTER → 2024-10-15 | Outpatient (CLI) | payer MEDICARE, BC | END | disposition home or self-care (01) | LOC: LABPAT 16:25 | PROVIDERS: ATTEND Thoracic Surgery (Cardiothoracic Vascular Surgery) | DX: Z01.812 Encounter for preprocedural laboratory examination (principal); I35.0 Nonrheumatic aortic (valve) stenosis | CPT/HCPCS: 86850; 86900; 86901 ==

== ENCOUNTER 2024-10-17 10:12 | Inpatient (IN) | payer MEDICARE, BC ==
[~2024-10-17 10:12] MED LIST changes: -ALPRAZolam 0.25 MG TAB PO PRN; -ALPRAZolam 0.5 MG TAB PO PRN; -BENZOCAINE SPRAY 1 CAN TOPICAL PRN; +CLEVIDIPINE BUTYRATE 25 MG in EMPTY BAG 1 BAG IV PRN; +ELECTROLYTE-A SOLUTION 1,000 ML with POTASSIUM CHLORIDE 100 MEQ, MAGNESIUM SULFATE 16 M... IV PRN; -HEPARIN SODIUM,PORCINE (1 ML) 2,500 UNIT in SODIUM CHLORIDE 0.9% 250 ML IRRIGATION PRN; -HEPARIN SODIUM,PORCINE 10,000 UNIT in SODIUM CHLORIDE 0.9% 1,000 ML IRRIGATION PRN; +INSULIN REGULAR 100 UNIT in SODIUM CHLORIDE 0.9% 100 ML IV PRN; -MIDAZOLAM 2 MG/2 ML VIAL IV PRN; -NITROGLYCERIN SL TABS 0.4 MG TAB SUBLINGUAL PRN; +NITROGLYCERIN-D5W PMX 25 MG/250 ML BTL IV PRN; +PROTAMINE SULFATE 250 MG in EMPTY BAG 1 BAG IV PRN; +SODIUM CHLORIDE 0.9% 500 ML 500 ML INTRAARTER PRN; +TRANEXAMIC ACID 2,000 MG in SODIUM CHLORIDE 0.9% 80 ML IV PRN; +VANCOMYCIN IV PER PHARMACY 1 EACH MISC MISCELLANE PRN; -fentaNYL (PF) 50 MCG/ML 5 ML AMP IVP PRN
[2024-10-17] MEDS: ASPIRIN 325 MG TAB PO ONE (10:26)
[2024-10-17] MEDS: IV FLUID CONTINUATION 1,000 ML IV ONE (10:29)
[2024-10-17] MEDS: ATORVASTATIN 10 MG TAB PO ONE (10:39)
[2024-10-17] MEDS: CLOPIDOGREL 75 MG TAB PO ONE (10:39)
[2024-10-17] MEDS: METOPROLOL TARTRATE 25 MG TAB PO ONE (10:40)
[2024-10-17] MEDS: VANCOMYCIN 1,000 MG in SODIUM CHLORIDE 0.9% 250 ML IVPB PRN (10:52)
[2024-10-17 11:23] LABS: Glucose,Whole Blood 101 mg/dL (70-110)
--- NOTE | 2024-10-17 11:58 | P.ANPRN ---
Procedure Note - Anesthesia - Invasive Line Right Arterial Line Time Out Performed: Yes Date of Procedure: 10/17/24 Time of Procedure: 11:29 Location of Patient: PreOp Preparation: Sterile Prep Arterial Line Location: Radial Ultrasound Used: Yes Purpose - Visualization and Identification of Vasculature: Yes Needle Guage: 20 Image Stored and Saved: Yes Narrative: Invasive line placement per sterile protocol utilized. Heavily calcified artery.
[2024-10-17] MEDS ORDERED: LIDOCAINE 1% INJ 10MG/ML (20 ML MDV) ONE (12:20)
[2024-10-17] MEDS ORDERED: LABETALOL 5 MG/ML VIAL MDV ONE (12:20)
[2024-10-17] MEDS ORDERED: NEOSTIGMINE 1 MG/ML 10 ML VIAL ONE (12:20)
[2024-10-17] MEDS ORDERED: HEPARIN SODIUM,PORCINE 5,000 UNIT/ML 1 ML VIAL ONE (12:20)
[2024-10-17] MEDS ORDERED: GLYCOPYRROLATE 0.2 MG/ML 2 ML VIAL ONE (12:20)
[2024-10-17] MEDS ORDERED: fentaNYL (PF) 50 MCG/ML 2 ML AMP ONE (12:20)
[2024-10-17] MEDS ORDERED: SUCCINYLCHOLINE CHLORIDE 200 MG/10 ML VIAL IV ONE (12:20)
[2024-10-17] MEDS ORDERED: PROTAMINE SULFATE 10 MG/ML 5 ML VIAL ONE (12:20)
[2024-10-17] MEDS ORDERED: PROPOFOL 10 MG/ML 20 ML VIAL IV ONE (12:20)
[2024-10-17] MEDS ORDERED: ePHEDrine 50 MG/ML 1 ML VIAL ONE (12:20)
[2024-10-17] MEDS ORDERED: PHENYLEPHRINE-0.9% NACL SYG 1,000 MCG/10 ML SYRINGE ONE (12:20)
[2024-10-17] MEDS ORDERED: ROCURONIUM 10 MG/ML (5 ML VIAL) IV ONE (12:20)
[2024-10-17] MEDS: IOPAMIDOL-370 100ML BTL INJ ONE (13:35)
--- NOTE | 2024-10-17 13:48 | P.ANPRN ---
Procedure Note - Anesthesia - CHIN Intraop Pre Bypass CHIN Intraop - Anesthesia Indication: Aortic stenosis Date of Procedure: 10/17/24 Pre-operative Diagnosis: Post-operative Diagnosis: Same Surgeon: Donald Townsend Left Ventricle: EF 70% Ejection Fraction: Normal Regional Wall Motion Abnormalities: None Left Ventricle Hypertrophy: Yes R. Ventricle Function: Normal Aortic Valve: Peak 62 mmHg, Mean 36 mmHg Anatomy: Trileaflet Aortic Stenosis: Severe Aortic Regurgitation: Mild Mitral Valve: Heavily calcified posterior leaflet Mitral Stenosis: None Mitral Regurgitation: Mild Tricuspid Stenosis: None Tricuspid Regurgitation: None Pulmonic Stenosis: None Pulmonic Regurgitation: None R. Atrial Dilation: No R. Atrial PFO: No L. Atrial Dilation: No Aortic Dissection: No Aortic Calcification: Severe Plural Effusion: None - CHIN Intraop Post Bypass CHIN Intraop Post Bypass Procedure Performed: TAVR Left Ventricle: EF 70% Ejection Fraction: Normal Regional Wall Motion Abnormalities: None R. Ventricle Function: Normal Aortic Valve: Peak 11 mmHg, Mean 4 mmHg; Mild perivalvular leak Mitral Valve: Unchanged Tricuspid: Unchanged Pulmonic: Unchanged Aortic Dissection: No (Mobile echodensity in distal arch. Surgeons aware)
--- NOTE | 2024-10-17 13:55 | P.OP ---
Description of Procedure: Transcatheter Aoritc Valve Replacement Operative report PROCEDURE PERFORMED: 1. Percutaneous Aortic Valve Implantation using a 29 mm Katrina. 2. Transesophageal echocardiography (performed by anesthesia) 3. Ultrasound guided access and repair of right femoral artery access site by Perclose closure device. 4. Placement of temporary pacemaker wire. 5. Aortic root angiography INDICATIONS: 1. 84 year-old with a history of severe symptomatic aortic valve stenosis. PERFORMING PHYSICIANS: 1. Deondre Anderson, Interventional Cardiology 2. Donald Townsend MD, Cardiothoracic Surgeon. SEDATION: General anesthesia provided by anesthesia, see separate note APPROACH: Right femoral artery via percutaneous approach PROCEDURE DESCRIPTION: The patient was discussed at valve clinic with multidisciplinary approach with cardiothoracic surgeon as well as private branch exchange operator and thought better treated with TAVR. Risks, benefits, and alternatives of the procedure had been explained to the patient who understood the risks and agreed to proceed. After consents were obtained, patient was brought to the transcatheter aortic valve implantation room in the cardiac aquatic life laborer and general anesthesia was provided by the anesthesiologist (see separate report). Once full body sterile prep was performed, right subclavian venous access was obtained and a temporary pacemaker was screwed in, performed by cardiothoracic surgery. Pacing threshholds were checked and deemed appropriate. Next the left femoral artery was accessed using a modified Seldinger technique, ultrasound guidance and micropuncture technique. A 6 Kyr[place]z destination sheath was placed in the left femoral artery. Next, a 6-Kyrgyz pigtail catheter was advanced into the aorta and positioned in the aortic root, aortic root angiography was performed to determine optimal deployment angle. The right femoral artery was accessed using modified Seldinger technique, micropuncture technique and under direct ultrasound guidance. Femoral angiogram was done showing access in the common femoral artery and a 6Fr sheath was placed. Next preclose technique was performed using 2 Perclose at 2 and 10 Oclock positions. Next a 0.035 Safari wire was placed in the Aorta via a pigtail catheter. Over that the arteriotomy was serially dilated and a 16 Fr E sheath was placed. Next a 6F- AL1 catheter was advanced over a wire to the aortic root. A straight wire was advanced through the catheter and used to cross the severely stenotic valve. The AL1 was then exchanged for a 6Fr pigtail catheter and pressure measurements were obtained. The 0.035 Safari wire was then positioned in the apex. Next a 29 mm Katrina was advanced. The valve was then positioned across the aortic valve and confirmed with aortic root angiography. The valve was then deployed in proper position using slow deployment, balloon expansion and with rapid pacing in conjuncture with aortic root angiography and CHIN. The delivery system was withdrawn back into the arch and an aortic root injection in conjunction with CHIN demonstrated a satisfactory result. There was trace para valvular leak. There was no evidence of any other significant abnormalities. The preclose Perclose was then deployed in the right femoral artery and hemostasis was achieved. The pigtail was then advanced to the level of the iliac bifurcation via the left femoral access. Femoral angiogram was performed that showed no contrast leak. The left femoral angiogram demonstrated an arteriotomy in the common femoral artery and this was repaired using a 6F angioseal device with complete hemostasis. The temporary venous pacemaker was sutured in place. The patient was then transported to the holding area in hemodynamically stable condition, requiring no pressor support. COMPLICATIONS: None CONCLUSION: 1. Implantaion of 29 mm Katrina transcatheter aortic valve via right femoral approach under CHIN and fluoro guidance with [no] danielle-valvular aortic regurgitation. 2. Placement of temporary pacemaker wire 3. Aortic Root Aortogram. RECOMMENDATIONS: The patient will be monitored for hemodynamic and electrical stability.
[2024-10-17] MEDS ORDERED: ONDANSETRON 4 MG/2 ML VIAL IVP PRN (14:04)
[2024-10-17] MEDS ORDERED: CALCIUM ACETATE 667 MG TAB PO PRN (14:04)
[2024-10-17] MEDS ORDERED: Potassium Replacement Protocol 1 EACH MISC MISCELLANE PRN (14:04)
[2024-10-17] MEDS ORDERED: VANCOMYCIN IV PER PHARMACY 1 EACH MISC MISCELLANE PRN (14:04)
[2024-10-17] MEDS ORDERED: ACETAMINOPHEN TAB 325 MG TAB PO PRN (14:04)
[2024-10-17] MEDS ORDERED: CALCIUM GLUCONATE IN NACL 2 GM in SALINE 1 100ML.BAG IVPB PRN (14:04)
[2024-10-17] MEDS ORDERED: Magnesium Replacement Protocol 1 EACH MISC MISCELLANE PRN (14:04)
[2024-10-17] MEDS ORDERED: IPRATROPIUM-ALBUTEROL 3 ML NEB INHALATION PRN (14:04)
[2024-10-17 14:31] LABS: Glucose,Whole Blood 97 mg/dL (70-110)
--- NOTE | 2024-10-17 14:37 | P.OP ---
Date of Procedure: 10/17/24 Preoperative Diagnosis: Symptomatic calcific tricuspid aortic stenosis Postoperative Diagnosis: Same Procedure(s) Performed: Percutaneous transfemoral transcatheter aortic valve replacement with 29 mm Recio JOANNA 3 prosthesis Implants: 29 mm JOANNA aortic valve prosthesis Anesthesia: GETA Surgeon: Donald Townsend (Cardiovascular surgeon) Supervisor Final #1: Deondre Anderson (small business director) Supervisor Final #2: Rhys Yi (PATHOLOGY ASSISTANT first assisted) Estimated Blood Loss (ml): 15 Condition: stable Disposition: PACU Indications for Procedure: 84-year-old male with chronic renal failure and longstanding history of aortic valvular stenosis presents with severe aortic valve stenosis and worsening symptomatology primarily fatigue and dyspnea. He was seen in the high risk valve clinic and felt to be most appropriate for transcatheter aortic valve replacement. His aortic annulus was very large and he was not appropriate for [employer] valve but was appropriate for JOANNA 3 valve. Elective surgery was scheduled. Operative Findings: Vascular access through the groin was adequate. There was significant gradient across the aortic valve. After valve implantation, there was only trivial paravalvular leak. There was no significant gradient. Valve appeared well- expanded. Deployment levels were 10 and 90. Description of Procedure: Patient was brought to the cardiac catheterization laboratory placed supine on the table. General anesthesia was induced. The anterior torso and bilateral groins were sterilely prepped and draped. Right subclavian venous access was ob tained and a guidewire threaded into the right atrium introducer and sheath were placed and through this a screw-in ventricular lead was manipulated into the apex of the right ventricle. Pacing thresholds were below 1 V. Lead was secured to the skin with suture ligatures. Bilateral femoral arterial access was obtained under ultrasound guidance. On the right a 7 Honduran sheath was placed and then 2 Perclose devices were placed and then an 8 Honduran sheath was placed on the left a long 6 Honduran sheath was placed and through this a pigtail catheter was advanced into the right coronary sinus of Valsalva. 8 [place]uran sheath on the right was exchanged over a stiff wire for a 16 Honduran E sheath. This proceeded uneventfully. Patient was systemically heparinized and ACT is maintained greater than 250. Valve was crossed from the right femoral access and a pigtail catheter positioned in the apex of the ventricle. Transvalvular gradients were measured. Safari wire was then placed in the apex of the ventricle. 29 mm JOANNA Recio transcatheter valve was loaded on the back table and brought up onto the field. Was placed through the E sheath over the safari wire and advanced through the vascular tree. It was positioned in the descending thoracic aorta the balloon was pulled back into the valve. It was then advanced around the aortic arch and across the aortic valve. Pusher was pulled back and the valve was appropriately positioned and deployed under rapid ventricular pacing. Deployment went well. CHIN findings were as noted above. Heparin was reversed with protamine. The valve deployment system was removed and then the E sheath was removed and the 2 Perclose devices deployed with successful closure of the right femoral artery. Completion angiography was performed and was good. Left femoral sheath was then removed and the femoral artery closed with an Angio-Seal. Patient was extubated and transferred to recovery in stable condition.
[2024-10-17 14:44] LABS: Basophils # (A) 0.02 10*3/uL (0.00-0.10); Basophils % (A) 0.4 %; Eosinophils # (A) 0.11 10*3/uL (0.04-0.35); Eosinophils % (A) 2.2 %; HCT 31.9 % (39.6-50.0); HGB 10.8 g/dL (13.0-17.0); Immature Platelet Fraction 4.6 % (1.1-6.1); Lymphocytes # (A) 1.24 10*3/uL (0.90-5.00); Lymphocytes % (A) 25.1 %; MCH 32.4 pg (27.0-32.0); MCHC 33.9 g/dL (32.0-37.0); MCV 95.8 fL (80.0-97.0); Mean Platelet Volume 11.5 fL (9.5-12.2); Monocytes # (A) 0.49 10*3/uL (0.20-1.00); Monocytes % (A) 9.9 %; Neutrophils # (A) 3.06 10*3/uL (1.80-7.70); Neutrophils % (A) 61.8 %; Platelet Count 138 10*3/uL (140-440); RBC 3.33 10*6/uL (4.40-5.60); RDW 14.1 % (11.5-14.5); WBC 4.95 10*3/uL (4.50-10.00)
--- NOTE | 2024-10-17 15:37 | XR ---
EXAMINATION TYPE: XR chest 1V portable DATE OF EXAM: 10/17/2024 2:22 PM COMPARISON: 06/29/2024 CLINICAL INDICATION: Male, 84 years old with history of post TAVR, TECHNIQUE: XR chest 1V portable view(s) obtained. FINDINGS: The heart size is normal. The pulmonary vasculature is prominent. The lungs are clear. Prior cardiac valve intervention evident. IMPRESSION: 1. Prominent pulmonary vascular markings. Correlate for volume overload. [facility], , 10/17/2024 3:35 PM
[2024-10-17 16:19] LABS: Glucose,Whole Blood 107 mg/dL (70-110)
[2024-10-17] MEDS: CALCIUM ACETATE 667 MG TAB PO SCH (16:28)
[2024-10-17 16:52] LABS: African American GFR (CKD) 17 (>60 ml/min/1.73 sqM); Anion Gap 6 mmol/L; Blood Urea Nitrogen 33 mg/dL (9-20); Calcium 9.2 mg/dL (8.4-10.2); Carbon Dioxide 29 mmol/L (22-30); Chloride 102 mmol/L (98-107); Glucose 101 mg/dL (74-99); Non-African American GFR(CKD) 15 (>60 ml/min/1.73 sqM); Potassium 4.5 mmol/L (3.5-5.1); Sodium 137 mmol/L (137-145)
[2024-10-17] MEDS: ENALAPRILAT 1.25 MG/ML 1 ML VIAL IVP STA (18:10)
[2024-10-17] MEDS: DEXTROSE 5% IN WATER 100 ML with AMIODARONE 150 MG IV ONE (18:15)
[2024-10-17] MEDS: AMIODARONE 360 MG in DEXTROSE 5% IN WATER 200 ML IV ONE (18:27)
[2024-10-17 18:33] VITALS: RESP 16
[2024-10-17] MEDS: cloNIDine HCL 0.1 MG TAB PO SCH (19:56)
[2024-10-17] MEDS: SENNOSIDES-DOCUSATE SODIUM 1 EACH TAB PO SCH (19:56)
[2024-10-17] MEDS: LACTATED RINGERS 1,000 ML IV SCH (22:29)
[2024-10-17] MEDS: HEPARIN SODIUM,PORCINE 5,000 UNIT/ML 1 ML VIAL SQ SCH (23:26)
[2024-10-17] MEDS: AMIODARONE 450 MG in DEXTROSE 5% IN WATER 250 ML IV SCH (23:26)
[2024-10-18] MEDS: LACTATED RINGERS 1,000 ML IV SCH (04:49)
[2024-10-18] MEDS: VANCOMYCIN 1,250 MG in SODIUM CHLORIDE 0.9% 250 ML IVPB ONE (05:02)
[2024-10-18 06:10] LABS: Glucose,Whole Blood 113 mg/dL (70-110)
[2024-10-18] MEDS: PANTOPRAZOLE 40 MG TABLET PO SCH (06:29)
[2024-10-18 07:56] LABS: Basophils # (A) 0.02 10*3/uL (0.00-0.10); Basophils % (A) 0.3 %; Eosinophils % (A) 1.6 %; HCT 34.2 % (39.6-50.0); HGB 10.8 g/dL (13.0-17.0); Lymphocytes # (A) 1.33 10*3/uL (0.90-5.00); Lymphocytes % (A) 21.8 %; MCH 31.4 pg (27.0-32.0); MCHC 31.6 g/dL (32.0-37.0); MCV 99.4 fL (80.0-97.0); Mean Platelet Volume 11.2 fL (9.5-12.2); Monocytes # (A) 0.83 10*3/uL (0.20-1.00); Monocytes % (A) 13.6 %; Neutrophils # (A) 3.81 10*3/uL (1.80-7.70); Neutrophils % (A) 62.5 %; Platelet Count 128 10*3/uL (140-440); RBC 3.44 10*6/uL (4.40-5.60); RDW 14.2 % (11.5-14.5)
--- NOTE | 2024-10-18 07:57 | XR ---
EXAMINATION TYPE: XR chest 1V portable DATE OF EXAM: 10/18/2024 7:01 AM COMPARISON: 10/27/2024 CLINICAL INDICATION: Male, 84 years old with history of Post Operative Cardiac Surgery, TECHNIQUE: XR chest 1V portable view(s) obtained. FINDINGS: The heart size is normal. The pulmonary vasculature is normal. Some minimal streak atelectasis at the left costophrenic angle. Prior cardiac valve intervention is evident. IMPRESSION: 1. Minimal streaky atelectasis left costophrenic angle. [facility], , 10/18/2024 7:55 AM
[2024-10-18 07:59] LABS: ALT 17 U/L (4-49); AST 20 U/L (17-59); African American GFR (CKD) 13 (>60 ml/min/1.73 sqM); Albumin 3.5 g/dL (3.5-5.0); Alkaline Phosphatase 74 U/L (38-126); Anion Gap 10 mmol/L; Blood Urea Nitrogen 40 mg/dL (9-20); Calcium 9.4 mg/dL (8.4-10.2); Carbon Dioxide 25 mmol/L (22-30); Chloride 97 mmol/L (98-107); Glucose 86 mg/dL (74-99); Magnesium 2.1 mg/dL (1.6-2.3); Non-African American GFR(CKD) 11 (>60 ml/min/1.73 sqM); Potassium 5.3 mmol/L (3.5-5.1); Sodium 132 mmol/L (137-145); Total Bilirubin 0.5 mg/dL (0.2-1.3)
[2024-10-18] MEDS: ASCORBIC ACID 500 MG TAB PO SCH (08:41)
[2024-10-18] MEDS: ATORVASTATIN 40 MG TAB PO SCH (08:41)
[2024-10-18] MEDS: TORSEMIDE 20 MG TAB PO SCH (08:41)
[2024-10-18] MEDS: CLOPIDOGREL 75 MG TAB PO SCH (08:42)
[2024-10-18] MEDS: CHOLECALCIFEROL 25 MCG (1000 IU) TABLET PO SCH (08:42)
[2024-10-18] MEDS: LOSARTAN 50 MG TAB PO SCH (08:42)
[2024-10-18] MEDS: DOXAZOSIN 4 MG TAB PO SCH (08:42)
[2024-10-18] MEDS ORDERED: bisacodyL 10 MG SUPP RECTAL PRN (09:00)
[2024-10-18] MEDS ORDERED: MAGNESIUM HYDROXIDE 2,400 MG/30 ML CUP PO PRN (09:00)
[2024-10-18 11:14] LABS: Glucose,Whole Blood 118 mg/dL (70-110)
[2024-10-18 11:39] LABS: Glucose,Whole Blood 125 mg/dL (70-110)
--- NOTE | 2024-10-18 12:54 | CA ---
Transthoracic Echo Report Name: Shawn Luque Age: 84 Gender: M : 1940 Exam Date: 10/18/2024 08:45 Exam Location: [facility] Ht (in): 73 Wt (lb): 159 Ordering Physician: Steffanie Kilgore Attending/Referring Phys: [id number], Jame [employer] Architect Joann Spencer RDCS Procedure CPT: Indications: post TAVR Cardiac Hx: Technical Quality: Good Contrast 1: Total Dose (mL): Contrast 2: Total Dose (mL): MEASUREMENTS (Male / Female) Normal Values 2D ECHO LV Diastolic Diameter PLAX 4.8 cm 4.2 - 5.9 / 3.9 - 5.3 cm LV Systolic Diameter PLAX 3.6 cm IVS Diastolic Thickness 1.3 cm 0.6 - 1.0 / 0.6 - 0.9 cm LVPW Diastolic Thickness 1.0 cm 0.6 - 1.0 / 0.6 - 0.9 cm LV Relative Wall Thickness 0.5 LVOT Diameter 2.3 cm LV Diastolic Volume MOD BP 198.9 cm??? 67 - 155 / 56 - 104 cm??? LV Systolic Volume MOD BP 98.1 cm??? 22 - 58 / 19 - 49 cm??? LV Ejection Fraction MOD BP 50.7 % >= 55 % LV Cardiac Index MOD BP 3724.6 cm???/min???m??? LV Diastolic Volume MOD 4C 178.4 cm??? LV Systolic Volume MOD 4C 104.2 cm??? LV Ejection Fraction MOD 4C 41.6 % LV Cardiac Index MOD 4C 2743.5 cm???/min???m??? LV Diastolic Length 4C 10.2 cm LV Systolic Length 4C 8.9 cm LV Diastolic Volume MOD 2C 217.1 cm??? LV Systolic Volume MOD 2C 87.8 cm??? LV Ejection Fraction MOD 2C 59.6 % LV Cardiac Index MOD 2C 4781.8 cm???/min???m??? LV Diastolic Length 2C 10.4 cm LV Systolic Length 2C 8.4 cm LA Volume 139.2 cm??? 18 - 58 / 22 - 52 cm??? LA Volume Index 72.5 cm???/m??? 16 - 28 cm???/m??? DOPPLER AV Peak Velocity 271.8 cm/s AV Peak Gradient 29.6 mmHg AV Mean Velocity 203.2 cm/s AV Mean Gradient 18.0 mmHg AV Velocity Time Integral 63.8 cm LVOT Peak Velocity 133.9 cm/s LVOT Peak Gradient 7.2 mmHg LVOT Velocity Time Integral 29.9 cm LVOT Stroke Volume 119.7 cm??? LVOT Stroke Volume Index 61.3 ml/m??? LVOT Cardiac Index 4427.1 cm???/min???m??? AV Area Cont Eq vti 1.9 cm??? AV Area Cont Eq pk 2.0 cm??? MV Peak Velocity 134.2 cm/s MV Peak Gradient 7.2 mmHg MV Mean Velocity 83.3 cm/s MV Mean Gradient 3.2 mmHg MV Velocity Time Integral 47.6 cm MV Area PHT 2.8 cm??? Mitral E Point Velocity 120.3 cm/s Mitral A Point Velocity 123.7 cm/s Mitral E to A Ratio 1.0 MV Deceleration Time 270.2 ms TR Peak Velocity 255.3 cm/s TR Peak Gradient 26.1 mmHg Right Atrial Pressure 5.0 mmHg Pulmonary Artery Systolic Pressu 31.1 mmHg Right Ventricular Systolic Press 31.1 mmHg PV Peak Velocity 92.9 cm/s PV Peak Gradient 3.5 mmHg FINDINGS Left Ventricle Left ventricular ejection fraction is estimated at 45-50 %. Mildly increased septal wall thickness. Moderately increased left ventricular diastolic volume. Severely increased left ventricular systolic volume. Mildly decreased left ventricular ejection fraction. Right Ventricle Severe right ventricular dilatation. Normal right ventricular global systolic function. Right ventricular systolic pressure within normal limits. Right Atrium Severe right atrial dilatation. Catheter/pacemaker wire in the right atrial cavity. Left Atrium Severely increased left atrial volume. Moderately increased left atrial area. Mitral Valve Mitral valve thickened. Mitral annular calcification. No evidence for mitral valve prolapse. Moderate mitral stenosis. Mild mitral regurgitation. Aortic Valve Bioprosthetic aortic valve without stenosis with a peak velocity of 2.7 m/s, peak gradient 30 mmHg, mean gradient 18 mmHg, and estimated aortic valve area of 1.9 cm???. No central aortic regurgitation. Mild paravalvular aortic regurgitation. Tricuspid Valve Structurally normal tricuspid valve. No tricuspid stenosis. Mild tricuspid regurgitation. Pulmonic Valve Pulmonic valve not well visualized. No pulmonic stenosis. No pulmonic regurgitation. Pericardium No pericardial effusion. Aorta Aortic annulus normal. CONCLUSIONS Mildly impaired LV function with EF between 45 to 50% and LVH Transcatheter valve in aortic position with a mean gradient of 18 mmHg and mild perivalvular leak No pericardial effusion Previewed by: Dr. Sage Madrid MD (Electronically Signed) Final Date: 18 October 2024 12:53
[2024-10-18 14:44] VITALS: BMI 21.4
--- NOTE | 2024-10-18 15:51 | P.DS ---
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, NYHA class III History of rheumatic fever as a child Hypertension End-stage renal disease on hemodialysis Bladder cancer status post resection with self catheterization Obstructive sleep apnea status post U P3 surgery Carotid artery disease status post right CEA Previous tobacco dependence PROCEDURE: Percutaneous aortic valve implantation using a 29 mm Recio Katrina under CHIN and fluoroscopy guidance Transesophageal echocardiography performed by anesthesia Ultrasound-guided access and repair of right femoral artery access site by Perclose closure device Placement of temporary pacemaker wire Aortic root angiography HISTORY OF PRESENT ILLNESS: This is an 84-year-old gentleman who follows on an outpatient basis with RENNY Rasheed for primary care and Dr. Kim for cardiology. He has a known history of severe aortic stenosis and has been symptomatic with increased exertional dyspnea as well as dizziness. He had been referred to structural heart clinic for evaluation for transcatheter aortic valve replacement after heart catheterization and transesophageal echocardiogram were completed. Echocardiography demonstrated systolic normal function with EF 55- 60%, aortic valve area 0.6 cm with a peak/mean gradient 69/41 mmHg. Heart catheterization showed normal coronaries. After workup was completed STS risk score was calculated along with incremental risk and the patient was felt to be very high risk for surgical aortic valve replacement, therefore transcatheter aortic valve replacement was recommended. The usual course of TAVR was discussed in detail the patient, risks and benefits were reviewed, shared decision making between cardiology, surgery, and the patient/family took place, and the patient consented to proceed with the procedure. HOSPITAL COURSE: The patient was brought to the hospital on 10/17/24, was taken to the extended stay area, prepared in the usual fashion, and subsequently taken to the cardiac catheterization laboratory where Dr. Anderson and Dr. Townsend completed TAVR procedure under general anesthesia with fluoroscopy and CHIN. The valve was deployed under rapid ventricular pacing and proceeded without event. At the end of the procedure there was mean gradient 4 mmHg, hemodynamics were felt to be acceptable, and there was no evidence of significant perivalvular leak. Upon completion of the procedure the patient was extubated and was transferred to the recovery room and eventually the cardiac stepdown unit where he was recovered and monitored hemodynamically. His oxygen was titrated down, he was tolerating oral diet, his pain was controlled, follow-up TTE demonstrated normal left ventricular systolic function, functioning bioprosthetic aortic valve without stenosis, peak/mean gradient 30/18 mmHg, no central aortic regurgi tation, mild perivalvular regurgitation, no pericardial effusion, and he was ready to be discharged to home on postoperative day #1. He received written and verbal instruction regarding his medications, activity restrictions, signs and symptoms requiring physician notification, and follow-up appointments. Patient Condition at Discharge: Stable Plan - Discharge Summary Discharge Rx Participant: Yes New Discharge Prescriptions: New Sennosides-Docusate Sodium [Senokot-S] 2 each PO HS PRN tab PRN Reason: Constipation Acetaminophen Tab [Tylenol] 650 mg PO Q4HR PRN tab PRN Reason: Fever And/ Or Mild Pain (1-3) Continue Ascorbic Acid [Vitamin C] 1,000 mg PO DAILY Atorvastatin [Lipitor] 40 mg PO DAILY Calcium Acetate [PhosLo] 1,334 mg PO BID PRN PRN Reason: snacks Calcium Acetate [PhosLo] 2,001 mg PO TID-W/MEALS cloNIDine HCL [Catapres] 0.3 mg PO BID Doxazosin [Cardura] 4 mg PO DAILY Torsemide [Demadex] 20 mg PO BID Cholecalciferol (Vitamin D3) [Vitamin D3 (50 Mcg = 2000 Iu)] 50 mcg PO DAILY Clopidogrel [Plavix] 75 mg PO DAILY Losartan [Cozaar] 50 mg PO DAILY Discharge Medication List Ascorbic Acid [Vitamin C] 1,000 mg PO DAILY 05/14/24 [History] Atorvastatin [Lipitor] 40 mg PO DAILY 05/14/24 [History] Calcium Acetate [PhosLo] 1,334 mg PO BID PRN 05/14/24 [History] Calcium Acetate [PhosLo] 2,001 mg PO TID-W/MEALS 05/14/24 [History] Cholecalciferol (Vitamin D3) [Vitamin D3 (50 Mcg = 2000 Iu)] 50 mcg PO DAILY 05/14/24 [History] Doxazosin [Cardura] 4 mg PO DAILY 05/14/24 [History] cloNIDine HCL [Catapres] 0.3 mg PO BID 05/14/24 [History] Clopidogrel [Plavix] 75 mg PO DAILY 06/27/24 [History] Torsemide [Demadex] 20 mg PO BID 08/01/24 [History] Losartan [Cozaar] 50 mg PO DAILY 10/16/24 [History] Acetaminophen Tab [Tylenol] 650 mg PO Q4HR PRN tab 10/18/24 [Rx] Sennosides-Docusate Sodium [Senokot-S] 2 each PO HS PRN tab 10/18/24 [Rx] Follow up Appointment(s)/Referral(s): Javan Mcgee [REFERRING] - As Needed Ovi Kim MD [STAFF PHYSICIAN] - 10/29/24 3:45 pm (Your appointment October 29 is in [facility] and is for groin check. Please cancel your December appointment in [place]. You have a 30-day post TAVR follow-up echocardiogram and appointment with Dr. Kim 11/22/2024 at 2:30 PM, and a 1 year post TAVR follow-up echocardiogram and appointment with Dr. Kim 09/24/25 at 1:45 PM. Both 30-day and 1 year appointments will be in the [facility]) Clinic,Structural Heart [NON-STAFF] - 11/22/24 2:00 pm (You have a 30-day post TAVR appointment in the valve clinic 11/22/24 at 2 PM prior to your appointment with Dr. Kim, and a 1 year post TAVR appointment in the valve clinic 09/24/25 at 1:15 PM prior to your appointment with Dr. Kim) Ambulatory/Diagnostic Orders: Basic Metabolic Panel [LAB.AMB] Location: None Selected Basic Metabolic Panel [LAB.AMB] Location: None Selected Complete Blood Count w/diff [LAB.AMB] Location: None Selected Complete Blood Count w/diff [LAB.AMB] Location: None Selected Activity/Diet/Wound Care/Special Instructions: DISCHARGE INSTRUCTIONS: 1. No driving for 1 week, or until physician gives their ok. 2. No lifting, pushing, or pulling more than 5-10 pounds for 1 week. 3. Hold both groins when you cough or sneeze for the next 2 weeks. Bruising is common, but report increased swelling, pain or fever >101F 4. Shower daily. No pool, hot tub, or bathtub for 1 week 5. No powders, lotions, ointments on incisions. 6. No straining, including for bowel movements. Use stool softner if necessary 7. Stairs are not an issue. Go slowly, using handrail and take 1 step at a time. Ambulate several times daily 8. Continue pain control per as needed orders. 9. Take only the medications listed on your discharge form 10. Eat low salt (limited to 2 grams or 2000 milligrams) daily, avoid adding salt, avoid canned/processed foods 11. Take your weight daily in the morning and record, bring with you to your follow up appointments 12. Keep all follow up appointments. You will need a valve clinic appointment at 30 days and 1 year post procedure for follow up 13. [facility] have [facility] 14. You will need antibiotics prior to any dental work, including cleanings, and any surgeries to prevent Endocarditis (bacterial infection in your heart) For any questions or concerns please call your valve coordinators: Steffanie or Homero @ Discharge Disposition: HOME SELF-CARE
[2024-10-18 15:59] VITALS: BP 132/66; PULSE 62; TEMP 97.8
== END 2024-10-18 16:01 | disposition home or self-care (01) | DRG 266 ==
LOC: 2ORMAIN 10:12 → 3SCARD 15:21
PROVIDERS: ADMIT Internal Medicine; ATTEND Internal Medicine
PROC: B246ZZ4 Ultrasonography of Right and Left Heart, Transesophageal (ICD-10-PCS; 2024-10-17)
PROC: B3101ZZ Fluoroscopy of Thoracic Aorta using Low Osmolar Contrast (ICD-10-PCS; 2024-10-17)
PROC: 03HY32Z Insertion of Monitoring Device into Upper Artery, Percutaneous Approach (ICD-10-PCS; 2024-10-17)
PROC: 4A133B1 Monitoring of Arterial Pressure, Peripheral, Percutaneous Approach (ICD-10-PCS; 2024-10-17)
PROC: 4A133J1 Monitoring of Arterial Pulse, Peripheral, Percutaneous Approach (ICD-10-PCS; 2024-10-17)
PROC: 02RF38Z Replacement of Aortic Valve with Zooplastic Tissue, Percutaneous Approach (ICD-10-PCS; principal; 2024-10-17 12:10)
PROC: 5A1223Z Performance of Cardiac Pacing, Continuous (ICD-10-PCS; 2024-10-17 12:10)
DX: I35.2 Nonrheumatic aortic (valve) stenosis with insufficiency (principal); Z00.6 Encounter for examination for normal comparison and control in clinical research program; N18.6 End stage renal disease; I12.0 Hypertensive chronic kidney disease with stage 5 chronic kidney disease or end stage renal disease; Z66 Do not resuscitate; Z99.2 Dependence on renal dialysis; I34.0 Nonrheumatic mitral (valve) insufficiency; R33.8 Other retention of urine; F17.210 Nicotine dependence, cigarettes, uncomplicated; E78.5 Hyperlipidemia, unspecified; Z85.51 Personal history of malignant neoplasm of bladder; Z86.19 Personal history of other infectious and parasitic diseases; G47.33 Obstructive sleep apnea (adult) (pediatric); Z86.79 Personal history of other diseases of the circulatory system; Z88.8 Allergy status to other drugs, medicaments and biological substances
CPT/HCPCS: 33210; 33361; 71045; 80048; 80053; 83735; 85025; 93306; 93312; 93320; 93325